=== PATIENT | male | born 1990 | race Caucasian/White ===

== ENCOUNTER 2021-03-08 14:19 | Outpatient (REF) | payer OTHER, SELFPAY ==
[2021-03-08 19:08] LABS: C Reactive Protein 0.16 mg/dL (< or = 0.50); Rheumatoid Factor < 15.0 IU/mL (<15.0)
[2021-03-08 19:32] LABS: Vitamin D 25-OH Total 24.6 ng/mL (>30)
[2021-03-08 19:44] LABS: Folate 18.6 ng/mL (> or = 4.0); Vitamin B12 485 pg/mL (200-900)
[2021-03-08 19:59] LABS: Erythrocyte Sedimentation Rate 2 MM/HR (0-15)
[2021-03-10 23:46] LABS: Anti Nuclear Antibody Screen NEGATIVE (NEGATIVE)
[2021-03-11 17:06] LABS: Lyme Abs Screen <0.90 index
[2021-03-13 11:52] LABS: A. Phagocytophilum Ab IgG <1:64 (<1:64); A. Phagocytophilum Ab IgM <1:20 (<1:20); E. Chaffeensis Ab IgG <1:64 (<1:64); E. Chaffeensis Ab IgM <1:20 (<1:20)
== END 2021-03-08 14:20 | disposition home or self-care (01) ==
LOC: HO.MANLDS 14:19
PROVIDERS: PCP Internal Medicine; Visit Provider Physician Assistant
DX: M25.50 Pain in unspecified joint (principal)
CPT/HCPCS: 36415; 82306; 82607; 82746; 85652; 86038; 86039; 86140; 86431; 86617; 86618; 86666

== ENCOUNTER 2022-06-17 11:24 | Outpatient (REF) | payer OTHER, SELFPAY ==
[2022-06-17 13:48] LABS: MANUAL DIFF FLAG NO
[2022-06-17 14:06] LABS: Basophils Absolute Auto 0.1 X10*3/uL (0.0-0.2); Eosinophils Absolute Auto 0.1 X10*3/uL (0.0-0.4); Eosinophils Percent Auto 2.5 % (0-4); Hematocrit 42.2 % (42.0-52.0); Hemoglobin 14.5 g/dl (14.0-18.0); Imm Gran Abs Auto 0.01 X10*3/uL (0.00-0.03); Imm Gran Pct Auto 0.2 % (0.0-0.4); Lymphocytes Absolute Auto 2.2 X10*3/uL (1.2-4.9); Lymphocytes Percent Auto 41.9 % (20-40); Mean Corpuscular HGB Conc 34.4 g/dl (31.0-36.0); Mean Corpuscular Hemoglobin 30.3 pg (27.0-33.0); Mean Corpuscular Volume 88.3 fL (80.0-98.0); Mean Platelet Volume 10.2 fL (9.4-12.4); Monocytes Absolute Auto 0.5 X10*3/uL (0.1-1.2); Monocytes Percent Auto 9.6 % (2-11); Neutrophils Absolute Auto 2.4 x10*3/uL (2.0-8.3); Neutrophils Percent Auto 44.8 % (45-73); Platelet Count 276 X10*3/uL (160-400); Red Blood Count 4.78 X10*6/uL (4.60-5.80); Red Cell Distribution Width 13.2 % (11.0-16.0); White Blood Count 5.2 X10*3/uL (4.8-10.8)
[2022-06-17 14:30] LABS: Alanine Aminotransferase 31 U/L (0-40); Albumin Level 4.6 g/dL (3.5-5.0); Alkaline Phosphatase 63 U/L (39-117); Anion Gap 14 (12-20); Aspartate Amino Transferase 25 U/L (5-37); Bilirubin Total 0.7 mg/dL (0.0-1.0); Blood Urea Nitrogen 10 mg/dL (9-16); Calcium 9.4 mg/dL (8.4-10.2); Carbon Dioxide 28 mmol/L (22-29); Chloride 104 mmol/L (96-108); Cholesterol 215 mg/dL; Estimated Glomerular Filt Rate > 60; Glucose Random 86 mg/dL (60-115); HDL Cholesterol 40 mg/dL; LDL Cholesterol Calculated 154 mg/dl; Potassium 4.5 mmol/L (3.3-5.1); Sodium 141 mmol/L (135-145); Total Protein 7.3 g/dL (6.5-8.0); Triglycerides 108 mg/dL
[2022-06-17 14:50] LABS: Vitamin D 25-OH Total 27.1 ng/mL (>30)
== END 2022-06-17 11:25 | disposition home or self-care (01) ==
LOC: HO.MANLDS 11:24
PROVIDERS: Visit Provider Internal Medicine
DX: Z00.00 Encounter for general adult medical examination without abnormal findings (principal)
CPT/HCPCS: 36415; 80053; 80061; 82306; 85025

== ENCOUNTER 2023-10-31 20:04 | Emergency (ER) | payer OTHER, SELFPAY ==
--- NOTE | ~2023-10-31 | XR_ITS ---
Examination: XR ankle LT min 3V, XR foot LT min 3V Indication: injury,pain Comparison: No pertinent prior studies are currently available for comparison. Technique: 2 views the ankle, 3 views the foot including a lateral view of the foot and ankle obtained. Findings: There is significant soft tissue swelling laterally about the ankle. I do not appreciate any underlying acute fracture or dislocation. Ankle mortise appears be intact. No fracture or dislocation seen within the visualized foot. No radiopaque foreign body or soft tissue gas. XR/XR foot LT min 3V Impression: Significant soft tissue swelling laterally about the ankle but no acute fracture or dislocation seen.
--- NOTE | ~2023-10-31 | XR_ITS ---
Examination: XR ankle LT min 3V, XR foot LT min 3V Indication: injury,pain Comparison: No pertinent prior studies are currently available for comparison. Technique: 2 views the ankle, 3 views the foot including a lateral view of the foot and ankle obtained. Findings: There is significant soft tissue swelling laterally about the ankle. I do not appreciate any underlying acute fracture or dislocation. Ankle mortise appears be intact. No fracture or dislocation seen within the visualized foot. No radiopaque foreign body or soft tissue gas. XR/XR ankle LT min 3V Impression: Significant soft tissue swelling laterally about the ankle but no acute fracture or dislocation seen.
[2023-10-31 20:09] VITALS: BP 137/94; PULSE 88; RESP 17; TEMP 36.4; O2SAT 98; BMI 28.3
--- NOTE | 2023-10-31 20:46 | ED.GENADULT ---
HPI - General Adult General Chief complaint: Extremity Injury, Lower Stated complaint: foot pain Time Seen by Provider: 10/31/23 20:42 Source: patient Mode of arrival: ambulatory Limitations: no limitations History of Present Illness HPI narrative: Patient is a 33 year old assigned male at with no reported medical history presenting to the emergency department today with bruising to his left foot and swelling to his left ankle. 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 Patient states that he doesn't have any pain but noticed bruising and thought he should have it checked out. Patient denies any numbness, tingling, dizziness, lightheadedness, abdominal pain, nausea, vomiting, fever, chills, blurry vision, double vision, loss of vision, chest pain, difficulty breathing, shortness of breath, back pain, night sweats, pain with urination, increased urinary frequency, increased urinary urgency, blood in his urine or stool, syncope or a near syncopal episode, bowel incontinence, bladder incontinence, bowel retention, bladder retention, or any other complaints at this time. Onset (ago): day(s) (2) Location: left and lower extremity Radiation: non-radiation Severity: mild Severity scale (1-10): 3 Relieving factors: none Exacerbating factors: none Associated symptoms: denies other symptoms Treatments prior to arrival: none Related Data Allergies Allergy/AdvReac Type Severity Reaction Status Date / Time cefadroxil [From Duricef] Allergy Hives Verified 10/31/23 20:16 doxycycline Allergy Vomiting Verified 10/31/23 20:16 shellfish derived Allergy Vomiting Verified 10/31/23 20:16 Review of Systems Constitutional: Constitutional: Reports no additional constitutional complaints, Denies chills, Denies fever(s) and Denies night sweats Eyes: Eyes: Reports no additional eye complaints, Denies blurry vision, Denies change in vision, Denies diplopia, Denies eye discharge, Denies loss of vision and Denies eye pain ENT: Denies dizziness Cardiovascular: Cardiovascular: Reports no additional cardiovascular complaints, Denies chest pain, Denies lightheadedness, Denies Loss of Consciousness and Denies dyspnea Respiratory: Respiratory: Reports no additional respiratory complaints and Denies dyspnea Gastrointestinal: Gastrointestinal: Reports no additional gastrointestinal complaints, Denies abdominal pain, Denies melena, Denies hematochezia, Denies change in bowel habits and Denies change in stool character Genitourinary: Genitourinary: Reports no additional male genitourinary complaints, Denies hematuria, Denies oliguria, Denies difficulty urinating, Denies dysuria, Denies urinary frequency, Denies urinary hesitancy, Denies urinary incontinence and Denies urinary urgency Musculoskeletal: Musculoskeletal: Reports no additional musculoskeletal complaints, Denies numbness and Denies tingling Comments: left ankle and foot swelling / bruising Neurologic: Denies dizziness, Denies loss of vision, Denies numbness and Denies tingling Psychiatric: Psychiatric: Reports no additional psychiatric complaints Endocrine: Endocrine: Reports no additional endocrine complaints Hematologic/Lymphatic: Hematologic/Lymphatic: Reports no additional hematologic/lymphatic complaints Allergic/Immunologic: Allergic/Immunologic: Reports no additional allergic/immunologic complaints PMFSH Past Medical History Attestation statement: The following information was validated with the patient. Source: old records reviewed and nursing notes reviewed Social History Social History Advance Directives: No Advance Directives Information Provided: No Physical Exam ED Vital Signs: Vital Signs - 24 hr 10/31/23 20:09 Temperature 97.5 F Pulse Rate 88 Respiratory Rate 17 Blood Pressure 137/94 H Pulse Oximetry 98 Oxygen Delivery Method Room Air BMI result Body Mass Index 28.3 Const General: cooperative, no acute distress, alert and awake Nutritional Appearance: well nourished Orientation/consciousness: patient oriented x3 Limitations: no limitations HENMT Head: Yes normal to inspection and Yes atraumatic Ears: hearing grossly normal bilaterally and external ears normal General nose exam: Normal external nose present, no nasal discharge noted and no epistaxis Face and sinus: Yes normal facial exam, No abrasion and No laceration Mouth: Normal oral and palatal mucosa present, no drooling and no muffled voice Eyes General: appearance normal, both eyes and all related structures Periorbital: periorbital findings normal Eyelids: Yes eyelids normal Conjunctivae: conjunctivae normal Pupils: Equal, round and reactive pupils present EOM: EOMs intact bilaterally Neck Neck: Yes normal visual inspection, Yes full ROM and Yes no lymphadenopathy Chest Chest palpation & inspection: normal inspection of the chest Resp Effort & Inspection: normal respiratory effort and able to speak in complete sentences GI Inspection: Yes normal to inspection Neuro General: patient oriented x3 and moves all extremities Cranial nerves: Yes Equal, round and reactive pupils present Cognition (Neuro): normal cognition Motor exam (neuro): 5/5 motor strength present throughout Sensory Exam: Normal double simultaneous stimulation for sensation Coordination: [id number] test normal Extrem Other: minimal swelling present to the left dorsal foot and left ankle, bruising in various stages of healing to the dorsal left foot and ankle General: Yes full ROM and Yes capillary refill normal Psych Appearance: grossly normal Mental Status: mental status grossly normal Affect: normal affect Attitude: cooperative Thought process: Normal thought process present Thought content: Normal thought content present Insight: Good insight present (Psych) Medical Decision Making Medical Decision Making MDM Narrative: Patient is a 33 year old assigned male at with no reported medical history presenting to the emergency department today with left ankle and foot swelling. Patient's physical exam was as noted in the physical exam portion of this note. Patient's left ankle and foot x-rays showed no acute process. I explained my physical exam findings as well as all test results to the patient. I answered all questions asked by the patient. I stressed the importance of the patient taking his medication as prescribed. I stressed the importance of the patient following up with his primary care provider. I stressed the importance of the patient returning to the emergency department immediately if his symptoms were to worsen or if he were to develop any dizziness, shortness of breath, difficulty breathing, chest pain, blurry vision, loss of vision, nausea, vomiting, abdominal pain, fever, chills, back pain, or any other complaints. Patient verbalized agreement and understanding with this treatment plan and discharge. Differential Diagnosis Differential Diagnoses: The differential diagnosis associated with the presentation includes Ankle sprain Ankle strain Foot sprain Foot strain Bruising to the ankle and foot Foot swelling Ankle swelling Admission/Observation Consideration of admission/observation: Escalation of care including admission/observation considered Patient would have been admitted to the hospital had his work up had any findings where hospital admission was appropriate and his clinical presentation warranted hospital admission. Independent Interpretation I performed an independent interpretation of an: Plain X-Ray Interpretation: My interpretation is in agreement with the radiologist's impression of these imaging studies. Examination: XR ankle LT min 3V, XR foot LT min 3V Indication: injury,pain Comparison: No pertinent prior studies are currently available for comparison. Technique: 2 views the ankle, 3 views the foot including a lateral view of the foot and ankle obtained. Findings: There is significant soft tissue swelling laterally about the ankle. I do not appreciate any underlying acute fracture or dislocation. Ankle mortise appears be intact. No fracture or dislocation seen within the visualized foot. No radiopaque foreign body or soft tissue gas. XR/XR foot LT min 3V Impression: Significant soft tissue swelling laterally about the ankle but no acute fracture or dislocation seen. Dictated By: Ihsan Magana MD Signed By: Electronically signed by Ihsan Magana MD 10/31/232052 Radiology Impression Discussion of test interpretation with radiology: I have reviewed the radiologist's reading. Discharge Plan Discharge Clinical Impression: Ankle sprain and strain Patient Disposition: Home, Self-Care Instructions: Ankle Sprain (ED) Additional Instructions: Follow up with your primary care provider. Return to the emergency department immediately if your symptoms worsen or if you develop any dizziness, shortness of breath, difficulty breathing, chest pain, blurry vision, loss of vision, nausea, vomiting, abdominal pain, fever, chills, back pain, or any other complaints. Referrals: Isaías Alex MD [Primary Care Provider] - Interventions: ED Discharge Assessment Last Done: 10/31/23 21:49 Discharge Date/Time: 10/31/23 21:50 Print Language: Turkmen
--- OUTSIDE RECORDS SUMMARY | 2023-10-31 20:58 | XMS_ITS | Continuity of Care Document ---
Author Name Unknown Organization [facility] Address [address] [address]- Care Team Providers Care Face Man Name Role Phone Isaías Alex DO Primary Care Physician [phone] [place] [facility] [place]/22 [facility] [address] [address]- Attending Physician: Alanis Salas MD Admitting Physician: Alanis Salas MD Referring Physician: Isaías Alex DO Allergies, Adverse Reactions, Alerts Substance Reaction Severity Status doxycycline Cefadroxil Active Medications amitriptyline 25 mg oral tablet Refills 0, Maintenance, 10/28/22 13:25:00 EST, Partial fill upon patient request if the prescription is for a schedule II opioid drug. Start Date: 10/28/22 Status: Ordered aspirin 81 mg oral delayed release tablet 81 mg, 1, tablet, By Mouth, Daily, Refills 0, Maintenance, 10/28/22 13:29:00 EST, Partial fill uponpatient request if the prescription is for a schedule II opioid drug. Start Date: 10/28/22 Status: Ordered Flexeril 10 mg oral tablet 5 mg and 10 mg, By Mouth, PRN, Refills 0, Maintenance, 10/28/22 13:30:00 EST, Partial fill upon patient request if the prescription is for a schedule II opioid drug. Start Date: 10/28/22 Status: Ordered methocarbamol 750 mg oral tablet 0 Refills, Maintenance, 10/28/22 13:27:00 EST, Partial fill upon patient request if the prescription is for a schedule II opioid drug. Start Date: 10/28/22 Status: Ordered Metoprolol Succinate ER 50 mg oral tablet, extended release 2 times a day, 0 Refills, Maintenance, 10/28/22 13:26:00 EST, Partial fill upon patient request if the prescription is for a schedule II opioid drug. Start Date: 10/28/22 Status: Ordered Multivitamin Daily, 0 Refills, Maintenance, 10/28/22 13:29:00 EST, Partial fill upon patient request if the prescription is for a schedule II opioid drug. Start Date: 10/28/22 Status: Ordered Omeprazole = 40 mg, By Mouth, Daily, 0 Refills, Maintenance, 10/28/22 13:29:00 EST, Partial fill upon patient request if the prescription is for a schedule II opioid drug. Start Date: 10/28/22 Status: Ordered Tramadol = 50 mg, By Mouth, PRN, 0 Refills, Maintenance, 10/28/22 13:30:00 EST, Partial fill upon patient request if the prescription is for a schedule II opioid drug. Start Date: 10/28/22 Status: Ordered Patient Care team information Care Team Personnel Name: Isaías Alex DO Position: Reference Physician Member Role: PCP Address: Address: [address] [place] [address] [place] [address]- Care Team Related Persons Name: ZONIA WATSON Address: [facility] [address] [place] [id number]
--- OUTSIDE RECORDS SUMMARY | 2023-10-31 20:58 | XMS_ITS | Continuity of Care Document ---
Author Name Unknown Organization [facility] Address [address] [address]- Care Team Providers Care Ssis Developer Name Role Phone Isaías Alex DO Nataliia Primary Care Physician [phone] Encounter [facility] [place] Date(s): 10/28/22 - 12/31/22 [facility] [address] [address]- Attending Physician: Danny Rojas MD Admitting Physician: Danny Rojas MD Referring Physician: Danny Rojas MD Allergies, Adverse Reactions, Alerts Substance Reaction Severity [...] Reference Physician Member Role: PCP Address: Address: [address] [place] [address] [place] [address]- Care Team Related Persons Name: ZONIA WATSON Address: [facility] [address] [place] [id number]
--- OUTSIDE RECORDS SUMMARY | 2023-10-31 20:58 | XMS_ITS | Continuity of Care Document ---
Author Name Unknown Organization [facility] Address [address] [address]- Care Team Providers Care Brazer Controlled Atmospheric Furnace Name Role Phone Isaías Alex DO Nataliia Primary Care Physician [place] [facility] [place]s): 10/02/22 - 11/01/22 [facility] [address] [address]- [place] Allergies, Adverse Reactions, Alerts No Known Medication Allergies Medications amitriptyline 25 mg oral tablet Refills [...] ER 50 mg oral tablet, extended release 0 Refills, Maintenance, 10/28/22 13:26:00 EST, Partial [...] Reference Physician Member Role: PCP Address: Address: [address] [place] [address] [place] [address]- Care Team Related Persons Name: ZONIA WATSON Address: [address] [address]
--- OUTSIDE RECORDS SUMMARY | 2023-10-31 20:58 | XMS_ITS | Continuity of Care Document ---
Author Name Unknown Organization [facility] Address [address] [address]- Care Team Providers Care Automobile Leasing Supervisor Name Role Phone Isaías Alex DO Nataliia Primary Care Physician [place] [facility] [place] 12/01/22 - 12/31/22 [facility] [address] [address]- Attending Physician: Johnny Santos Admitting Physician: AdmJohnny morillo Referring Physician: Admtr, Ar8 Allergies, Adverse Reactions, Alerts Substance Reaction Severity [...] Reference Physician Member Role: PCP Address: Address: [address] [place] [address] [place] [address]- Care Team Related Persons Name: ZONIA WATSON Address: [facility] [address] [place] [id number]
--- OUTSIDE RECORDS SUMMARY | 2023-10-31 20:58 | XMS_ITS | Continuity of Care Document ---
Author Name Unknown Organization [facility] Address [address] [address]- Care Team Providers Care Hospitalist Physician Name Role Phone Isaías Alex DO Primary Care Physician Encounter [facility] [place] Date(s): 11/07/22 - 01/08/23 [facility] [address] [address]- Attending Physician: Danny Rojas MD Admitting Physician: Danny Rojas MD Referring Physician: Isaías Alex DO Allergies, [...] Reference Physician Member Role: PCP Address: Address: [address] [place] [address] [place] [address]- Care Team Related Persons Name: ZONIA WATSON Address: [facility] [address] [place] [address]
--- OUTSIDE RECORDS SUMMARY | 2023-10-31 20:58 | XMS_ITS | Continuity of Care Document ---
Author Name Unknown Organization [facility] Address [address] [address]- Care Team Providers Care Rotor Casting Machine Operator Name Role Phone Isaías Alex DO Primary Care Physician [phone] Encounter [facility] [place] Date(s): 10/28/22 - 11/04/22 [facility] [address] [address]- Attending Physician: Danny Sanabria MD Admitting Physician: Danny Sanabria MD Referring Physician: Isaías Alex DO Allergies, Adverse Reactions, Alerts No Known Medication [...] opioid drug. Start Date: 10/28/22 Status: Ordered Vital Signs Most recent to oldest [Reference Range]: 1 Weight 91 kg (10/28/22 1:24 PM) Oxygen Saturation [94-100 %] 97 % (10/28/22 1:24 PM) Pulse Rate [55-90 bpm] 68 bpm (10/28/22 1:24 PM) Blood Pressure [90-138/55-84 mm Hg] 136/ 71mm Hg (10/28/22 1:24 PM) Mode of Delivery (Oxygen) Room air (10/28/22 1:24 PM) Blood pressure sites Arm, left (10/28/22 1:24 PM) Weight Obtained Via Standing scale (10/28/22 1:24 PM) EKG study * Event Display: ECG 12-Lead Authored Date: Please click on pdf link to open report * Event Display: ECG 12-Lead Authored Date: Ventricular Rate: 68 BPM Atrial Rate: 68 BPM P-R Interval: 132 ms QRS Duration: 84 ms Q-T Interval: 378 ms QTC Calculation(Bazett): 401 ms P Argos: 14 degrees R Argos: 28 degrees T Argos: 14 degrees Normal sinus rhythm Normal ECG No previous ECGs available Confirmed by DANNY SANABRIA ([id number]) on 10/28/2022 4:41:27 PM Wayne: DANNY SANABRIA Cardiology Outpatient Note * [facility]UZ[facility]: PERFORM, MODIFY, MODIFY, MODIFY, MODIFY Event Display: Cardiology Note Office Authored Date: [id number] Patient: ??RISHI WATSON ? Age:??32 Years?Sex:??Male?:??1990?? Indication for Consult ?? [facility] -??Cardiology Clinic Note ?? Primary Care Provider: Isaías Alex, DO ?? Reason for referral: Chest Pain ?? History of Present Illness/Interval History The patient is a 32-year-old gentleman with a past medical history of AZ in his 20s, asthma, gastroesophageal reflux disease who presents to the cardiology clinic for further evaluation. ?? Patient reports that he is currently active in the [employer].?? He reports that approximately 10 years ago he was in [place] and reportedly developed left- sided chest discomfort radiating down hisleft arm.?? He reports that he discussed this with the physicians at his base who felt he was too young to have a heart attack.?? He reports that his chest discomfort persisted until he was seen by [facility] later that day.?? He reports that his cardiac enzymes were reportedly elevated.?? He reports that he was seen by a weapons system instrument mechanic and was told that he had a heart attack.?? He denies any history of cardiac catheterization, coronary interventions, or bypass surgery.?? Reports that he w as started on aspirin and metoprolol which she has been maintained on for the past decade.?? He reports that this was done in [place]. ?? Patient reports that he has been in his usual state of health until the day before when he was sitting down on his couch and developed severe shortness of breath and ran into the other room.?? He reports that he developed left-sided chest discomfort and was seen at [facility].?? His lab work-up was unremarkable and did not have elevated troponins or ischemic EKG changes.?? His symptoms were thought to be secondary to laryngospasm and was discharged from the emergency department with outpatient follow-up with cardiology.?? He reports that since that time he has developed significant shortness of breath on exertion primarily while climbing up a flight of stairs o r walking significant distances.?? Denies orthopnea, PND, lower extremity swelling, dizziness, or syncopal episodes. Review of Systems Constitutional, Eye, Skin, Head/Neck, ENMT, Respiratory, Cardiovascular, Gastrointestinal, Endocrine, Musculoskeletal, Neurologic, Psych reviewed and negative except as noted in HPI. Physical Exam Vitals & Measurements AZ:??68?? BP:??136/71?? SpO2:??97%?? WT:??91??kg?? Weight lb/oz: 200 lb 10 oz General:??No apparent distress. Well nourished, appears stated age. Able to participate in a conversation. HEENT:??NCAT, EOMI, Sclera are anicteric. Moist oral mucosa. Neck:??Supple, No lymphadenopathy. No JVD. Cardiac:??Regular rate and rhythm, + S1, S2. No appreciable murmurs. PMI ND. Respiratory:??Clear to auscultation bilaterally without wheezes, rales or rhonchi. Abdomen:??Soft, nontender, non-distended, no abnormal BS, no HSM. Rectal exam deferred. Extremities:??No lower extremity edema noted.?? Neurology:??No focal neurological deficits.?? Psych:??Appropriate affect. Assessment/Plan The patient is a 32-year-old gentleman with a past medical history of AZ in his 20s, asthma, gastroesophageal reflux disease who presents to the cardiology clinic for further evaluation. ?? Problem list: 1.?? Dyspnea on exertion 2.?? Chronic left-sided chest pain 3.?? Reported history of AZ in his 20s 4.?? Family history of premature coronary artery disease 5.?? Gastroesophageal reflux disease 6.?? Asthma ?? Assessment: Patient reports a history of left-sided chest pain approximately a decade ago requiring evaluation in [place].?? He was reportedly told that he had a heart attack by the emergency department and acardiologist.?? He did not require cardiac catheterization or coronary intervention for the patient.?? He reports that he has since been maintained on aspirin and metoprolol.?? He reports that he wasin his usual state of health until the day before when he developed severe shortness of breath prompting him to be seen at [facility].?? He had unremarkable lab work-up.??Reports since that time he has been having significant shortness of breath with exertion with associated chronic left-sided chest pain.?? At this time, given unclear history of prior heart attack we will obtain a transthoracic echocardiogram for further evaluation and will further work-up for coronary artery disease with coronary CTA. ?? Recommendations: - Obtain coronary CTA to evaluate for underlying coronary artery disease - Obtain transthoracic echocardiogram to evaluate cardiac function and for structural heart disease - Obtain lipid panel, A1c, basic metabolic panel - Continue medications as prescribed - Follow-up after above testing has been completed ?? Thank you for allowing us to participate in the care of your patient.?? Please feel free to reach out if you have any questions. ?? Patient discussed with attending weapons system instrument mechanic, Dr. Sanabria. ?? Carroll Calloway MD Afternoon Babysitter, PGY-6 Pager: [phone] Allergies No Known Medication Allergies Home Medications amitriptyline 25 mg oral tablet aspirin 81 mg oral delayed release tablet, 81 mg= 1 tablet, By Mouth, Daily Flexeril 10 mg oral tablet, 5 mg and 10 mg, By Mouth, PRN methocarbamol 750 mg oral tablet Metoprolol Succinate ER 50 mg oral tablet, extended release Multivitamin, Daily Omeprazole, 40 mg, By Mouth, Daily Tramadol, 50 mg, By Mouth, PRN Problem List/Past Medical History Ongoing No qualifying data Historical No qualifying data Procedure/Surgical History Hernia and hydrocele repair when he was 2 months old. Appendectomy in 2018. Social History Patient lives in [place], [place]. 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 Never smoker. Denies illicit drug use. Drinks 1-2 beers per week. Family History Uncle: AZ in his 50's. Grandmother (maternal): CAD with PCI's in the past. Grandmother (paternal): Valve replacement Grandfather (paternal): Dual valve replacement and quadruple bypass * Danny Sanabria MD: PERFORM Event Display: Cardiology Note Office Authored Date: [id number] Attending Attestation:??I have seen and evaluated this patient. ??I have discussed the case and itsmanagement with the fellow and agree with the findings and plan as documented in the fellow???s note. Patient Care team information Care Team Personnel Name: Isaías Alex DO Position: Reference Physician Member Role: PCP Address: Address: [address] [place] [address] [place] [address]- Care Team Related Persons Name: ZONIA WATSON Address: home [address] [place] [address]
--- OUTSIDE RECORDS SUMMARY | 2023-10-31 20:58 | XMS_ITS | Continuity of Care Document ---
Author Name Unknown Organization [facility] Address [address] [address]- Care Team Providers Care Health It Specialist Name Role Phone Isaías Alex DO Nataliia Primary Care Physician [phone] Encounter [facility] Date(s): 12/09/22 - 01/08/23 [facility] [address] [address]- Attending Physician: Johnny Santos Admitting Physician: AdmJohnny [...] Reference Physician Member Role: PCP Address: Address: [address] [place] [address] [place] [address]- Care Team Related Persons Name: ZONIA WATSON Address: [facility] [address] [place] [id number]
== END 2023-10-31 21:50 | disposition home or self-care (01) ==
PROVIDERS: Emergency Provider Emergency Medicine Emergency Medical Services; PCP Internal Medicine
DX: S93.492A Sprain of other ligament of left ankle, initial encounter (principal); S96.812A Strain of other specified muscles and tendons at ankle and foot level, left foot, initial encounter; X50.1XXA Overexertion from prolonged static or awkward postures, initial encounter; Y93.89 Activity, other specified; Y92.59 Other trade areas as the place of occurrence of the external cause; Y99.0 Civilian activity done for income or pay
CPT/HCPCS: 73610; 73630; 99282; 99283

== ENCOUNTER 2024-10-04 13:12 | Outpatient (REF) | payer OTHER, SELFPAY ==
--- NOTE | ~2024-10-04 | US_ITS ---
CLINICAL HISTORY: SWELLING, LUMP, LEFT SIDE US of the neck, soft tissues Comparison: None Findings: There are 2 indeterminate lymph nodes measuring 2.0 x 1.1 x 0.4 cm and 1.7 x 0.9 x 0.5 cm. There are no cystic or solid masses in the areas scanned. Impression: 1. Indeterminate cervical adenopathy. Clinical follow-up recommended This document has been electronically signed by: Santiago Glass MD on 10/07/2024 08:44:11
== END 2024-10-04 13:13 | disposition home or self-care (01) ==
LOC: HO.US 13:12
PROVIDERS: PCP Internal Medicine; Visit Provider Physician Assistant
DX: R22.1 Localized swelling, mass and lump, neck (principal)
CPT/HCPCS: 76536

== ENCOUNTER → 2024-10-04 13:15 | Outpatient (BNV) | payer OTHER, SELFPAY | PROVIDERS: PCP Internal Medicine; Visit Provider Specialist | DX: R22.1 Localized swelling, mass and lump, neck (principal) | CPT/HCPCS: 76536 ==

== ENCOUNTER 2024-12-07 09:47 | Outpatient (REF) | payer OTHER, SELFPAY ==
--- NOTE | ~2024-12-07 | CT_ITS ---
EXAMINATION: CT SOFT TISSUE NECK WITH CONTRAST CLINICAL INFORMATION: Lymphadenopathy. Rule out abnormal lymph nodes. COMPARISON: Soft tissue ultrasound neck 10/04/2024. No prior CT. TECHNIQUE: Following the intravenous administration of 100 mL of Omnipaque 350 intravenous contrast, helical imaging was performed in the axial plane with generation of coronal and sagittal reformatted images. This CT examination was performed using dose optimization techniques as appropriate, variously including the following: *Automated exposure control *Adjustment of mA and/or kV according to patient size (this includes techniques or standardized protocols for targeted exams where dose is matched to indication/reason for exam; i.e. extremities or head) *Use of iterative reconstruction technique FINDINGS: Lymph Nodes: -Normal. None enlarged by size criteria or demonstrating abnormal morphology. Carotid Sheath Structures: -Normal. Salivary Glands: -Normal. Tongue Base/Floor of Mouth: -Normal. Mucosal Space: -Mild hypertrophy of the tonsillar pillar soft tissues, consistent with reactive etiology. -Normal epiglottis and aryepiglottic folds. -Otherwise normal mucosal space. Visceral Space: -Thyroid gland: Normal. -Larynx normal. -Subglottic trachea normal. -Superior esophagus normal. Retropharangeal Space: -Normal. Parapharyngeal Fat Planes: -Normal and undisturbed. Husker Operator Spaces: -Normal. Anterior Cervical Space: -BB marker placed over the left anterior sternocleidomastoid muscle. No underlying abnormality. -Otherwise normal. Imaged Intracranial Contents: -No mass effect, edema, or abnormal enhancement. Cortical and dural venous sinuses are patent. The skull base is normal. Globes and Orbits: -Normal. Paranasal Sinuses/Mastoids/Tympanic Spaces: -Normally aerated bilaterally. -There is left nasal septal deviation with spurring. Lung Apices and Superior Mediastinal Structures: -Imaged lung apices are clear and superior mediastinal structures are normal. Bony Structures: -No suspicious bone lesions. No fractures. -Normal TM joints. CT/CT soft tissue neck w IV con IMPRESSION: 1. Essentially normal CT examination of the neck. 2. No abnormal lymph nodes by size criteria or morphology. Electronically signed by: Murray Mirza MD 12/07/2024 12:27 PM EDT
[2024-12-07] MEDS: iohexoL 350 MG/ML 100 ML INFUS..BTL IV (10:52)
--- OUTSIDE RECORDS SUMMARY | 2024-12-07 10:53 | XMS_ITS | Data Portability ---
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 REVIEW OF PRIOR EXTERNAL NOTES/RESULTS, ORDERING OF TEST(S) CATEGORY 2. ASSESSMENT REQUIRING INDEPENDENT HISTORIAN(S) INCLUDE WHO THE HISTORIAN IS AND RELATION TO PT AND WHY PT IS UNABLE TO GIVE COMPLETE HISTORY ELEMENT 3: RISK (LOW) RISK OF COMPLICATIONS AND/OR MORBIDITY OR MORTALITY OF PATIENT MANAGEMENT PROVIDER MUST THOROUGHLY DOCUMENT ALL OF THE ELEMENTS COVERED Not available 06/24/2024 09:54:59 09/23/2024 09/23/2024 Patient agreed and verbally consents to this audio and video Telehealth appt via a secure platform [email or web address] Not available 09/23/2024 12:10:04 Plan of Treatment Reminders Order Date Submit Date Provider Last Modified By Organization Details Last Modified Time Details Appointments None recorded. Lab CMP, serum or plasma 2021 [facility], [address] [place] [address], [address], 12:02:18 lipid panel, blood 2021 022 [facility], [address] [place] [address], [address], 2 11:15:20 vitamin D, 25-hydroxy , total, serum 2021 [facility], [address] [place] [address], [address], 11:15:20 CBC w/ diff 2021 [facility], [address] [place] [address], [address], 2 13:12:[address] referral 2021 [facility], [address], [address], 3 10:22:37 Procedures None recorded. Surgeries None recorded. Imaging US, neck, soft tissue 2023 [facility], [address] [place] [address], [place], [address], 5 09:37:36 home sleep study 2022 023 [email or web address] Not available 3 11:09:12 Medication Orders omeprazole 40 mg capsule,de layed release 2021 [facility] #[id number], [address], [place], [id number], 14:55:56 famotidine 20 mg tablet 2021 [facility] [employer] #[id number], [address], [place], [id number], 14:55:59 Patient TargetsNo targets recorded. 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 [email or web address] [facility] (Medical Records) [address] [place], [address], 11/01/2023 08:24:43 10/31/19 24 10/31/2023 XR, ankle No observ ation record ed. [email or web address] [facility] (Medical Records) [address] [place], [address], 11/01/2023 08:25:06 10/07/19 25 10/04/2024 US, neck, soft tissu e No observ ation record ed. [email or web address] [facility] (Medical Records) [address] [place], [address], 10/07/2024 11:22:46 Result Notes None recorded. Problems Name Problem SNOMED Code Status Onset Date Resolution Date Notes Provider Name and Address Organization Details Recorded Time Palpitati ons 46821259 Active 2018 Not Available [facility] 09:41:38 Chronic neck pain 92420721506 07 Active 2018 Not Available [facility] 09:41:38 Paresthes ia of finger 404850112 Active 2018 Not Available [facility] 09:41:38 Gastroeso phageal reflux disease without esophagit is 826425645 Active 2018 Not Available [facility] 09:41:38 Sinus tachycard ia 98357347 Active 2018 seen on holter Not Available [facility] 09:41:38 COVID-19 615369487 Active 2021 Isaías Alex DO [address] [place] [address], [address], [facility] 2 12:50:01 Laryngoph aryngeal reflux 604067868 Active 2021 CARMENZA LISA [address] [place] [address], [address], [facility] 2 14:53:24 Atypical chest pain 436523274 Active 2021 CARMENZA LISA [address] [place] [address], [address], [facility] 2 15:00:00 Influenza 4402343 Active 2022 CARMENZA LISA [address] [place] [address], [address], [facility] 3 07:11:34 Migraine 91682196 Active 2022 Isaías Alex DO [address] [place] [address], [address], [facility] 3 15:40:06 Otitis media 51202544 Active 2022 CARMENZA LISA [address] [place] [address], [address], [facility] 3 12:43:33 Fatigue 73700858 Active 2022 Isaías Alex DO [address] [place] [address], [address], [facility] 3 10:21:11 Streptoco ccal sore throat 05375258 Active 2022 CARMENZA LISA [address] [place] [address], [address], [facility] 3 12:25:02 Cough 98569452 Active 2023 Isaías Alex DO [address] [place] [address], [address], [facility] 4 15:39:07 Acute bronchiti s 03775449 Active 2023 CARMENZA LISA [address] [place], [address], [facility] 4 14:53:57 Mass of neck 205271651 Active 2023 CARMENZA LISA [address] [place], [address], [facility] 4 12:08:36 Feeling of lump in throat 895530485 Active 2023 CARMENZA LISA [address] [place], [address], [facility] 4 12:15:37 Lymphaden opathy 92094045 Active 2024 CARMENZA LISA [address] [place] [address], [address], [facility] 5 11:24:00 Acute sinusitis 20439909 Active 2024 Isaías Alex, [address] [place] [address], [address], [facility] 5 14:36:20 Problem Notes None recorded. Procedures Surgical History Date Name Laterality Status Provider Name and Address Organization Details Recorded Time Appendectomy completed December Momo cochran [address], [address], [facility] 08/03/2019 14:36:07 laser assisted in situ keratomileusis completed December RONNELL [address], [address], [facility] 08/03/2019 14:36:20 hernia repair completed December Naresh fields [address], [address], [facility] 08/03/2019 14:58:37 excision of hydrocele completed Tess RONNELL [address], [address], [facility] 08/03/2019 14:58:46 Imaging Results Imaging Date Name Status LastModified by Organiz ation Details LastModified Time 10/31/2023 XR, ankle completed [email or web address] [facility] (Medical Records) [address] [place], [address], 11/01/2023 08:24:43 10/31/2023 XR, ankle completed [email or web address] [facility] (Medical Records) [address] [place], [address], 11/01/2023 08:25:06 10/04/2024 US, neck, soft tissue completed [email or web address] [facility] (Medical Records) [address] [place], [address], 10/07/2024 11:22:46 Procedure Notes None recorded. Medical Equipment None Reported. Allergies Allergen ID Allergen Name Allergen Category Reaction Reaction Severity Criticality Documentation Date Start Date Code Code System Note Provider Name and Address Organization Details Recorded Time 3576 Duricef medicatio n hives Not available Not available 08/03/2019 83743 6 RxNorm Lora [facility] 9 14:27:18 3577 doxycycli ne Not available vomiting Not available Not available 08/03/2019 3640 RxNorm Lora Wren [facility] 9 14:27:34 3578 shellfish derived food,medi cation nausea Not available Not available 08/03/2019 26113 UNK Lora Wren [facility] 9 14:27:48 Medications Name Sig Start Date Stop Date Status Note LastModified by Organization Details LastModified Time amoxicillin 500 mg capsule TAKE 1 CAPSULE BY MOUTH 3 TIMES A DAY FOR 10 DAYS. TAKE WITH FOOD, YOGURT, PROBIOTIC S. FINISH ALL. active Not Available Not Available No t Available methocarbam ol 500 mg tablet Take 2 tablets every day by oral route as needed. 03/27 completed Not Available Not Available Not Available prednisone 10 mg tablet TAKE 5 TABS X3 DAYS,THEN 4 TABS X3 DAYS, THEN 3 TABS X3 DAYS, THEN 2 TABS X3DAYS, THEN 1 TAB X3 DAYS active Not Available Not Available No t Available azithromyci n 250 mg tablet TAKE 2 TABLETS BY MOUTH TODAY, THEN TAKE 1 TABLET DAILY FOR 4 DAYS DIRECTED active Not Available Not Available No t Available metoprolol succinate ER 50 mg tablet,exte nded release 24 hr TAKE 1 TABLET BY MOUTH TWICE DAILY active Not Available Not Available No t Available Claritin 10 mg tablet Take 1 tablet every day by oral route. 05/03 completed Not Available Not Available Not Available sumatriptan 50 mg tablet active Not Available Not Available Not Available ciprofloxac in 500 mg tablet TAKE 1 TABLET BY MOUTH EVERY 12 HOURS FOR 14 DAYS 12/12 completed Not Available Not Available Not Available omeprazole 40 mg capsule,del ayed release TAKE 1 CAPSULE BY MOUTH EVERY DAY active Not Available Not Available No t Available tramadol 50 mg tablet Take 1 tablet every 6 hours by oral route as needed. 04/29 completed Not Available Not Available Not Available famotidine 20 mg tablet TAKE 1 TABLET BY MOUTH TWICE DAILY NEEDED 2021 active Not Available Not Available Not Avai lable amitriptyli ne 25 mg tablet TAKE 1 TABLET BY MOUTH EVERY DAY 2022 active Not Available Not Available Not Avai lable methocarbam ol 750 mg tablet Take 1 tablet 3 times a day by oral route as needed for 10 days. active PRN Not Available Not Available No t Available erythromyci n 5 mg/gram (0.5 %) eye ointment APPLY 1 CM RIBBON INTO THE LOWER CONJUNCTI MONICA SAC(S) IN THE AFFECTED EYE(S) BY OPHTHALMI C ROUTE 3 TIMES PER DAY 12/06 completed Not Available Not Available Not Available oseltamivir 75 mg capsule TAKE 1 CAPSULE BY MOUTH TWICE A DAY FOR 5 DAYS active Not Available Not Available No t Available neomycin-po lymyxin-dex ameth 3.5 mg/mL-10,00 0 unit/mL-0.1 % eye drops INSTILL 1 DROP INTO BOTH EYES 4 TIMES A DAY active Not Available Not Available No t Available gabapentin 300 mg capsule Take 1 capsule twice a day by oral route. 04/29 completed Not Available Not Available Not Available omeprazole 20 mg capsule,del ayed release TAKE 1 CAPSULE BY MOUTH EVERY DAY 08/26 completed Not Available Not Available Not Available metoprolol succinate ER 25 mg tablet,exte nded release 24 hr Take 1 tablet every day by oral route for 90 days. 05/21 completed Not Available Not Available Not Available methylpredn isolone 4 mg tablets in a dose pack FOLLOW PACKAGE DIRECTION S 06/17 completed Not Available Not Available Not Available ondansetron 4 mg disintegrat ing tablet TAKE 1 TABLET BY MOUTH EVERY 8 HOURS NEEDED FOR NAUSEA active Not Available Not Available No t Available fluticasone propionate 50 mcg/actuati on nasal spray,suspe nsion [place] 1 spray every day by intranasa l route for 30 days. 06/17 completed PRN Not Available Not Available Not Available amoxicillin 875 mg-potassiu m clavulanate 125 mg tablet TAKE 1 TABLET BY MOUTH EVERY 12 HOURS FOR 10 DAYS active Not Available Not Available No t Available metoprolol tartrate 25 mg tablet TAKE 1 TABLET (25 MG) BY ORAL ROUTE 2 TIMES PER DAY 08/03 completed Not Available Not Available Not Available loratadine 10 mg capsule Take 1 capsule every day by oral route for 90 days. active Not Available Not Available No t Available Flucelvax Quad 6571-9163 (PF) 60 mcg (15 mcg x 4)/0.5 mL IM syringe 05/21 completed Not Available Not Available Not Available Paxlovid 300 mg (150 mg x 2)-100 mg tablets in a dose pack TAKE 3 TABLETS BY MOUTH TWICE A DAY FOR 5 DAYS DIRECTED ON PACKAGING 06/17 completed Not Available Not Available Not Available Vitals Date Recorded Body height Body mass index (BMI) Body weight Heart rate Oxygen saturation Oxygen saturation in Arterial blood by Pulse oximetry Systolic blood pressure Diastolic blood pressure Provider Name and Address Organization Details Last Updated DateTime 2 177.8 cm 29 kg/m2 77896.6 6 g 66 /min 98 % 98 % 126 mm[Hg] 82 mm[Hg] [facility] 2 10:48:06 Date Recorded Body height Heart rate Oxygen saturation Oxygen saturation in Arterial blood by Pulse oximetry Systolic blood pressure Diastolic blood pressure Provider Name and Address Organization Details Last Updated DateTime 2 177.8 cm 71 /min 98 % 98 % 122 mm[Hg] 72 mm[Hg] [facility] 2 14:38:20 Date Recorded Body height Body mass index (BMI) Body weight Heart rate Oxygen saturation Oxygen saturation in Arterial blood by Pulse oximetry Systolic blood pressure Diastolic blood pressure Provider Name and Address Organization Details Last Updated DateTime 3 177.8 cm 28.4 kg/m2 71151.2 9 g 77 /min 98 % 98 % 128 mm[Hg] 70 mm[Hg] [facility] 3 09:54:09 Social History Question Answer Notes LastModified by Organizat ion Details LastModified Time Tobacco Smoking Status Never Smoker December Roselia[address]NE[address], [address], [facility] 08/03/2019 14:35:50 Do You Or Have You Ever Used E-cigarettes Or Vape? Never Used Electronic Cigarettes Information not available 08/03/2019 What Was The Date Of Your Most Recent Tobacco Screening? 06/19/2023 [email or web address] Information not available 06/19/2023 Do You Or Have You Ever Used Smokeless Tobacco? Never Used Smokeless Tobacco Information not available 08/03/2019 How Much Tobacco Do You Smoke? No Information not available 08/03/2019 How Many Years Have You Smoked Tobacco? 0 Information not available 08/03/2019 Do You Or Have You Ever Used Any Other Forms Of Tobacco Or Nicotine? No Information not available 06/19/2023 Sex: Unknown Functional Status None recorded. Mental Status None recorded. Family History Relationship Description Onset Age of this Age Resolved Age Notes LastModified by Organization Details LastModified Time Maternal Grandmother Heart valve disorder Not available 08/03 14:37:00 Maternal Grandmother Diabetes mellitus Not available 08/03 14:39:37 Paternal Grandmother Coronary arterioscler osis Not available 08/03 14:37:11 Paternal Grandmother Diabetes mellitus Not available 08/03 14:39:37 Paternal Grandmother Cerebrovascu lar accident Not available 14:39:55 Paternal Grandfather Coronary arterioscler osis Not available 08/03 14:37:24 Paternal Grandfather Heart valve disorder Not available 08/03 14:37:29 Paternal Grandfather Chronic obstructive pulmonary disease Not available 08/03 14:37:58 Paternal Grandfather Diabetes mellitus Not available 08/03 14:39:37 Maternal Grandfather Diabetes mellitus Not available 08/03 14:39:37 Mother Disorder of thyroid gland Not available 08/03 14:40:10 Father Hypertensive disorder Not available 08/03 14:40:15 Sister Crohn's disease Not available 08/03 14:40:31 Paternal Uncle Myocardial infarction 50 50 Not available 02/2019 14:41:01 Medical History No medical history recorded. Immunizations Vaccine Type Date Status Note Provider Nam e and Address Organization Details Recorded Time COVID-19, mRNA, LNP-S, PF, 30 mcg/0.3 mL dose 2 completed Not Available [facility] 07/10/2023 16:32:01 Td(adult) unspecified formulation 9 completed Not Available [facility] 07/10/2023 16:32:01 Tdap 9 completed Not Available [facility] 07/10/2023 16:32:01 meningococcal MCV4P 9 completed Not Available [facility] 07/10/2023 16:32:01 IPV 9 completed Not Available [facility] 07/10/2023 16:32:01 varicella 9 completed Not Available [facility] 07/10/2023 16:32:01 MMR 9 completed Not Available [facility] 07/10/2023 16:32:01 Hep B, unspecified formulation 9 completed Not Available [facility] 16:32:01 Hep A, pediatric, unspecified formulation 9 completed Not Available [facility] 07/10/2023 16:32:01 Hep A, pediatric, unspecified formulation 0 completed Not Available [facility] 07/10/2023 16:32:01 HPV, quadrivalent 6 completed Not Available [facility] 07/10/2023 16:32:01 HPV, quadrivalent 5 completed Not Available [facility] 07/10/2023 16:32:01 HPV, quadrivalent 5 completed Not Available [facility] 07/10/2023 16:32:01 rubella 3 completed Not Available [facility] 07/10/2023 16:32:01 Hep B, unspecified formulation 2 completed Not Available [facility] 07/10/2023 16:32:01 varicella 2 completed Not Available [facility] 07/10/2023 16:32:01 Anthrax, pre-exposure prophylaxis, post-exposure prophylaxis 2 completed Not Available [facility] 07/10/2023 16:32:01 Anthrax, pre-exposure prophylaxis, post-exposure prophylaxis 2 completed Not Available [facility] 07/10/2023 16:32:01 typhoid, ViCPs 2 completed Not Available [facility] 07/10/2023 16:32:01 vaccinia (smallpox) 2 completed Not Available [facility] 07/10/2023 16:32:01 influenza, intradermal, quadrivalent, preservative free 8 completed Not Available [facility] 07/10/2023 16:32:01 COVID-19, mRNA, LNP-S, PF, 30 mcg/0.3 mL dose 1 completed Not Available [facility] 07/10/2023 16:32:01 COVID-19, mRNA, LNP-S, PF, 30 mcg/0.3 mL dose 1 completed Not Available [facility] 07/10/2023 16:32:01 Past Encounters Encounter ID Performer Location Encounter Start Date Encounter Closed Date Diagnosis/Indication Diagnosis SNOMED-CT Code Diagnosis ICD10 Code Diagnosis Note [id number] December DEANNA Veloz [facility] [address] [facility],[place] [address] 08/03/2019 13:50:53 08/03/2019 15:11:42 Palpitations 32586128 R00.2 Gastroesop hageal reflux disease without esophagitis 334460355 K21.9 [id number] Isaías Alex DO [facility] [address] [facility],[place] [address] 03/27/2020 15:15:29 03/27/2020 15:59:46 Contact dermatitis 33171054 L25.9 Exposure to poison kyaw Numerous areas of erythemato us rash Will try high dose pred taper [id number] CARMENZA LISA [facility] [address] [facility],[place] [address] 05/21/2020 14:23:21 05/21/2020 15:44:24 Palpitations 40518263 R00.2 will increase script for metoprolol Chest pain 22586033 R07. 9 will fu with US and holter monitor to see if anything is cardiac [id number] CARMENZA LISA [facility] [address] [facility],[place] [address] 09/24/2020 09:37:15 09/24/2020 11:58:53 Acute maxillary sinusitis 48363866 J01.00 the patient has been on augmentin before with no problem will start on course and see if improvemen t Sinus tachycardia 243202 01 R00.0 needs refill, doing 90 scripts now due to cost saving [id number] CARMENZA LISA [facility] [address] [facility],[place] [address] 03/08/2021 13:49:16 03/08/2021 15:10:07 Dysfunction of eustachian tube 54658131 H69.93 will fu with ENT Fatigue 35076583 R53.83 will fu with lab work up Multiple joint pain 3567 8005 M25.50 fu with lab work [id number] Isaías Alex DO [facility] Internal Medicine [address] [facility],[place] [address] 05/03/2021 09:43:24 05/03/2021 10:41:38 Headache 57452072 R51.9 severe and assoc with syncope note daughter has a tortuous brain [place] [id number] CARMENZA LISA Internal [facility] [address] [facility] [address],[place] [address] 12/06/2021 11:46:17 12/09/2021 16:17:16 Acute sinusitis 03241913 J01.01 will start on z yanna and medrol dose paksevere sinus infection [id number] Isaías Alex DO [facility] Internal Medicine [address] [facility] [address] [address] 06/17/2022 10:40:33 06/17/2022 11:13:47 Active or passive immunization 266304648 Z23 utd Adult heal th examination 778251718 Z00.00 doing well no [place] [id number] CARMENZA LISA [facility] [address] [facility] [address] [address] 08/26/2022 14:21:35 08/27/2022 11:08:25 Laryngopharyngeal reflux 015644584 K21.9 will increase omeprazole dosage to 40 mgfamotidi ne will be added on board to use as neededwill see if this is effective and f/u in a few weeks Atypical chest pain 1025 18475 R07.89 [place] [id number] Isaías Alex DO [facility] Internal Medicine [address] [facility] [address] [address] 06/19/2023 09:48:28 06/19/2023 10:37:51 Adult health examination 447127508 Z00.00 doing well no major issuesneck pain is notably okdoing ok Fatigue 09072553 R53.83 noted ongoing and he has noted sometimtes waking up not breathing [id number] Isaías Alex DO [facility] Internal Medicine [address] [facility] [address] [address] 06/24/2024 09:05:49 06/24/2024 10:25:24 Palpitations 96152085 R00.2 stable now after complete work up [id number] CARMENZA LISA [facility] Internal Medicine [address] [facility] [address] [address] 09/23/2024 11:06:55 09/23/2024 13:25:07 Mass of neck 198554580 R22.1 lump on L side of neck, ddx LN, thyroid nodule, thyroid enlargemen t, lipoma, cyst, cancerous tumor (less likely given normal BW and no other symptoms Feeling of lump in throat 142044808 R09.89 Health Concerns Section Related Observation LastModified by Organization Detai ls LastModified Time None Recorded Concern Status LastModified by Organization Details LastModified Time None Recorded Advance Directives Directive None Recorded Payers Encounter Date Sequence Insurance Name Policy Number Policy [place] Covered Member ID [place] Member ID Guarantor Name 06/17/2022 1 [place] - DOS PRIOR TO 2024 - [employer] () [employer] [id number] [employer] 08/26/2022 1 [place] - DOS PRIOR TO 2024 - [employer] () [employer] [id number] [employer] 06/19/2023 1 [place] - DOS PRIOR TO 2024 - [employer] () [employer] [id number] [employer] 06/24/2024 1 [place] - DOS PRIOR TO 2024 - [employer] () [employer] [id number] [employer] 09/23/2024 1 [place] - DOS PRIOR TO 2024 - [employer] () [employer] [id number] [employer] Notes Date Note Type Note Provider Name and Address Organization Details Recorded Time 06/17/20 22 text/htm l Annual WellnessReported bypatient.Diet and Nutrition:healthy diet Fracture Risk:no history of fractures; no recent explained fracture; no sudden unexplained fractures; no previous musculoskeletal injuries Physical Activity:exercises on a regular basis; recent increase in physical activity; good physical condition Additional Lifestyle Factors:no tobacco use; no alcohol intake; stopped drinking alcohol Depression Risk:never feels sad, empty, or tearful; no loss of interest in activities; no significant changes in weight; no sleep disturbances or insomnia; no agitation; no loss of energy; no feelings of worthlessness or guilt; no thoughts of suicide; no history of depression; no history of mood disorders Hearing:no loss of hearing Vision:no vision problems Isaías WilliamMartin Alex DO [address] [place], [id number], [facility] 06/17/2022 11:12:27 08/26/20 22 text/htm l ER f/u the patient was in the ER due to left sided chest pain radiating down the left farideh the setting of prior left sided chest pain and inability to breath the patient will fu with patientpossible LGR will start on ome 40 mg and famotidine 20 mg BID will also set up with cardiologywill also fu with patient in a few weeks CARMENZA LISA [address] [place], [phone], [facility] 08/26/2022 15:06:31 06/19/20 23 text/htm l here for jaxon and is doing okno major issues Isaías NataliiaMartin Alex DO [address] [place], [id number], [facility] 06/19/2023 10:27:44 06/24/20 24 text/htm l patient is evaluated via tele/video assessment per patient consentduring current pandemic talked about his episode of palpitationsdeveloped a pain in the neck during and went to ERhe had been under severe stressfull work up in ER and has been good since Isaías Alex DO [address] [place], [id number], [facility] 06/24/2024 09:55:02 09/23/20 24 text/htm l c/o lump The patient is participating in this appointment via telemedicine communication with a phone call/video calling service (Doxy)The patient consents to use of these platforms in place of an in-person appointment due to either sick symptoms the patient is presenting with or current office closure due to COVID exposure in order to keep our office staff and patients safe the patient reports that he has a lump on the left side of his throatthe patient reports that is wear he had been noticing the foreign body sensation when he swallowsthe patient reports that it is mobile, not attached further back in his throat, doesn't feel like where his thyroid would be but he is not sureno tenderness on palpation of the lumpno skin changes, no drainageno warmth, no redness noticed it around a month agohasn't gotten bigger that he has noticed no other symptoms, denies fatigue, easy bruising, cold/heat intolerance, skin changes, nail changes, fever, chills, chest pain recommended US to identify what it is pt did note he has had swollen LN's in the past like his current lump tonsils intact CARMENZA LISA [address] [place] [address], [place], [phone], [facility] 09/23/2024 12:16:01
--- OUTSIDE RECORDS SUMMARY | 2024-12-07 10:54 | XMS_ITS | Continuity of Care Document ---
Author Name [facility] Organization [facility] Care Team Providers Care Regional Project Manager Name Role Phone [facility] Unavailable Unavailable Problems Combined list of problems from Department of Defense and Veterans Affairs facilities. It does not include entries that were removed or entered in error. Problem Status Onset Date Problem Type Date of Resolution Comments Source Cervicalgia Active 07/22/2016 Condition DoD lack of adequate sleep Active Condition DoD ankle joint pain Active Condition DoD corneal foreign body left eye Inactive Condition DoD astigmatism Active Condition DoD atypical chest pain Inactive Condition D oD Outpatient Physician Consultation Active Condition DoD chest pain or discomfort Inactive Condition DoD injury caused by animal venomous spider bite Inactive Condition DoD lump in / on the skin Active Condition [facility] visit for: administrative purpose Inactive Condition DoD joint pain, localized in the left shoulder Active Condition DoD heartburn Active Condition DoD 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 Fbs removed. Will give vigamox, ambien for sleep DoD Patient Education Dietary Inactive Condition DoD upper respiratory infection Inactive Condition DoD Blood Pressure Isolated Elevated Inactive Condition DoD vasovagal syncope Inactive Condition [facility] Spectacles Services Fitting Monofocal Except For Aphakia Inactive Condition [facility] refractive error - myopia Active Condition [facility] astigmatism regular Active Condition Do D visit for: services physical Active Condition [facility] visit for: issue medical certificate Inactive Condition DoD Medications Combined list of outpatient medications from Department of Defense and Veterans Affairs facilities.Medications provided include 1) outpatient medications from the last 15 months, and 2) patient-reported medications. Medication Details Route Status Patient Instructions Prescription Expires Prescription Number Last Dispense Date Ordering Provider Order Date Order Qty Source AZITHROMYCI N (azithromyc in), 250 MG, TABLET, ORAL, LUPIN PHARMACEU, 6 ea. BLIST PACK Active [id number] 2023 6 Pharmac y Data Transac tion Service Facilit y METOPROLOL SUCCINATE (metoprolol succinate), 50 MG, TAB ER 24H, ORAL, INGENUS PHARMAC, 1000 ea. BOTTLE Active 4 2023 180 Pharmac y Data Transac tion Service Facilit y PREDNISONE (prednisone ), 10 MG, TABLET, ORAL, MYLAN, 1000 ea. BOTTLE Active [id number] 4 2023 45 Pharmac y Data Transac tion Service Facilit y Allergies, Adverse Reactions, Alerts Combined list of allergies from Department of Defense and Veterans Affairs facilities. It does not include entries that were removed or entered in error. Substance Category Reaction Severity Reaction type Status Date Reported Comments Source cefadroxil Propensity to adverse reactions to substance Urticaria Active 2 Unknown Organizat ion CEPHALOSPORI NS Drug allergy (disorder) Unknown active 0 48 [employer] cephalospori ns Drug allergy Rash, Unknown Moderate Active 0 Reaction( s): Unknown; Note: Duricef<b r/>Replac ed free text allergy<b r/>Added as Codified 8344R-439 AMDS doxycycline Propensity to adverse reactions to substance Vomiting Active 6 Unknown Organizat ion DOXYCYCLINE HYCLATE (DOXYCYCLINE HYCLATE) Drug allergy (disorder) Vomiting active 6 27 [facility] DURICEF (CEFADROXIL HYDRATE) Drug allergy (disorder) Urticaria active 2 Special [facility] Shellfish Food allergy Vomiting Mild Active 8344R-439 AMDS Immunizations Combined list of available immunizations from the Department of Defense and Veterans Affairs facilities. Immunization Series Date Given Administered By Site Reaction Lot Number CVX Code Drug Dietitian Teacher Status Comments Source COVID-19, mRNA, LNP-S, PF, 30 mcg/0.3 mL dose, joe-sucrose 2021 BOGDASARIAN, () Not Given COVID-19, mRNA, LNP-S, PF, 30 mcg/0.3 mL dose, joe-sucr ose DoD influenza, injectable, quadrivalent- pf 2019 [id number] 150 Seqirus complet ed influenza , injectabl e, quadrival ent-pf 08/05/20 Given Ambulat ory Pharmac y Influenza, inj, MDCK, quadrivalent- pf 2018 171 complet ed Influenza , inj, MDCK, quadrival ent-pf 08/09/19 Given Ambulat ory Pharmac y Influenza, injectable, MDCK, preservative free, quadrivalent 2018 Rachel LANGE () Not Given Influenza , injectabl e, MDCK, preservat sharon free, quadrival ent DoD tetanus-dipht h toxoids (Td) adult/adol 2018 [id number] sanofi pasteur complet ed tetanus-d iphth toxoids (Td) adult/ado l 11/01/18 Given Ambulat ory Pharmac y tetanus-dipht h toxoids (Td) adult/adol 2018 [id number] 09 sanofi pasteur complet ed tetanus-d iphth toxoids (Td) adult/ado l 11/01/18 Given Ambulat ory Pharmac y tetanus and diphtheria toxoids, adsorbed, preservative free, for adult use (2 Lf of tetanus toxoid and 2 Lf of diphtheria toxoid) 2 2018 [id number] 09 Sanofi Pasteur ([facility]) complet ed tetanus and diphtheri a toxoids, adsorbed, preservat sharon free, for adult use (2 Lf of tetanus toxoid and 2 Lf of diphtheri a toxoid) DoD influenza, injectable, quadrivalent- pf 2017 [id number] 150 Seqirus complet ed influenza , injectabl e, quadrival ent-pf 07/15/18 Given Ambulat ory Pharmac y influenza, injectable, quadrivalent- pf 2017 [id number] 150 Seqirus complet ed influenza , injectabl e, quadrival ent-pf 07/15/18 Given Ambulat ory Pharmac y Influenza, injectable, quadrivalent, preservative free 1 2017 [id number] 150 Seqirus (SEQ) comple t ed Influenza , injectabl e, quadrival ent, preservat shraon free [facility] influenza virus vaccine, inactivated 2016 [id number] 88 Seqirus complet ed influenza virus vaccine, inactivat ed 08/06/17 Given Ambulat ory Pharmac y influenza virus vaccine, inactivated 2016 [id number] 88 Seqirus complet ed influenza virus vaccine, inactivat ed 08/06/17 Given Ambulat ory Pharmac y Influenza, injectable, Madin Steph Canine Kidney, quadrivalent with preservative 9 2016 [id number] 186 Seqirus (SEQ) comple t ed Influenza , injectabl e, Madin Steph Canine Kidney, quadrival ent with preservat sharon DoD influenza, seasonal, injectable-pf 2015 [id number] 140 Seqirus complet ed influenza , seasonal, injectabl e-pf 07/10/16 Given Ambulat ory Pharmac y influenza, seasonal, injectable-pf 2015 [id number] 140 Seqirus complet ed influenza , seasonal, injectabl e-pf 07/10/16 Given Ambulat ory Pharmac y Influenza, seasonal, injectable, preservative free 8 2015 [id number] 140 Seqirus (SEQ) comple t ed Influenza , seasonal, injectabl e, preservat sharon free DoD Human Papillomaviru s,quadrivalen t(HPV4) 2015 [id number] 62 [employer] complet ed Human Papilloma virus,mack drivalent (HPV4) 12/03/15 Given Ambulat ory Pharmac y Human Papillomaviru s,quadrivalen t(HPV4) 2015 [id number] 62 [employer]Fab & Featurespace Inc complet ed Human Papilloma virus,mack drivalent (HPV4) 12/03/15 Given Ambulat ory Pharmac y human papilloma virus vaccine, quadrivalent 1 2015 [id number] 62 Merck (MSD) complet ed human papilloma virus vaccine, quadrival ent DoD influenza, seasonal, injectable-pf 2014 [id number] 140 CSL Behring complet ed influenza , seasonal, injectabl e-pf 08/15/15 Given Ambulat ory Pharmac y influenza, seasonal, injectable-pf 2014 [id number] 140 CSL Behring complet ed influenza , seasonal, injectabl e-pf 08/15/15 Given Ambulat ory Pharmac y Influenza, seasonal, injectable, preservative free 7 2014 [id number] 140 CSL Imprimis Pharm[employer], Inc. (CSL) complet ed Influenza , seasonal, injectabl e, preservat sharon free DoD Human Papillomaviru s,quadrivalen t(HPV4) 2014 [id number] 62 Merck & Company Inc complet ed Human Papilloma virus,mack drivalent (HPV4) 06/11/15 Given Ambulat ory Pharmac y Human Papillomaviru s,quadrivalen t(HPV4) 2014 [id number] 62 Merck & Company Inc complet ed Human Papilloma virus,mack drivalent (HPV4) 06/11/15 Given Ambulat ory Pharmac y human papilloma virus vaccine, quadrivalent 0 2014 [id number] 62 Merck (MSD) complet ed human papilloma virus vaccine, quadrival ent DoD Human Papillomaviru s,quadrivalen t(HPV4) 2014 [id number] 62 Merck & Company Inc complet ed Human Papilloma virus,mack drivalent (HPV4) 10/05/14 Given Ambulat ory Pharmac y Human Papillomaviru s,quadrivalen t(HPV4) 2014 [id number] 62 Merck & Company Inc complet ed Human Papilloma virus,mack drivalent (HPV4) 10/05/14 Given Ambulat ory Pharmac y human papilloma virus vaccine, quadrivalent 0 2014 [id number] 62 Merck (MSD) complet ed human papilloma virus vaccine, quadrival ent DoD influenza, live, intranasal,qu adrivalent 2013 [id number] 149 Medimmune Inc comple t ed influenza , live, intranasa l,quadriv alent 07/13/14 Given Ambulat ory Pharmac y influenza, live, intranasal,qu adrivalent 2013 [id number] 149 Medimmune Inc comple t ed influenza , live, intranasa l,quadriv alent 07/13/14 Given Ambulat ory Pharmac y influenza, live, intranasal, quadrivalent 6 2013 [id number] 149 [employer] Inc. (MED) complet ed influenza , live, intranasa l, quadrival ent DoD influenza, seasonal, injectable 2012 [id number] 1A 141 CSL Behring complet ed influenza , seasonal, injectabl e 08/18/13 Given Ambulat ory Pharmac y influenza, seasonal, injectable 2012 [id number] 1A 141 CSL Behring complet ed influenza , seasonal, injectabl e 08/18/13 Given Ambulat ory Pharmac y Influenza, seasonal, injectable 5 2012 [id number] 1A 141 CSL Biotherapies, Inc. (CSL) complet ed Influenza , seasonal, injectabl e DoD rubella virus vaccine 0 2012 06 () Not Given rubella virus vaccine DoD varicella virus vaccine 1 2011 UNK 21 Unknown (UNK) Not Given varicella virus vaccine DoD hepatitis B vaccine, unspecified formulation 1 2011 UNK 45 Unknown (UNK) Not Given hepatitis B vaccine, unspecifi ed formulati on DoD influenza, seasonal, injectable 2011 [id number] 141 sanofi pasteur complet ed influenza , seasonal, injectabl e 06/23/12 Given Ambulat ory Pharmac y influenza, seasonal, injectable 2011 [id number] 141 sanofi pasteur complet ed influenza , seasonal, injectabl e 06/23/12 Given Ambulat ory Pharmac y Influenza, seasonal, injectable 0 2011 [id number] 141 Sanofi Pasteur ([facility]) complet ed Influenza , seasonal, injectabl e DoD anthrax vaccine 2011 [id number] 24 Emergent Biosolutions complet ed anthrax vaccine 04/16/12 Given Ambulat ory Pharmac y anthrax vaccine 2 2011 [id number] 24 Emergent [employer] Elizabeth (MIP) complet ed anthrax vaccine DoD anthrax vaccine 2011 [id number] 24 [employer]olutions complet ed anthrax vaccine 03/11/12 Given Ambulat ory Pharmac y anthrax vaccine 2011 [id number] 24 [employer] complet ed anthrax vaccine 03/11/12 Given Ambulat ory Pharmac y anthrax vaccine 1 2011 [id number] 24 [employer] Elizabeth (MIP) complet ed anthrax vaccine DoD vaccinia (smallpox) vaccine 2011 [id number] 75 DermaMedics complet ed vaccinia (smallpox ) vaccine 03/08/12 Given Ambulat ory Pharmac y typhoid Vi capsular polysaccharid e vac 2011 [id number] 101 sanofi pasteur complet ed typhoid Vi capsular polysacch aride vac 03/08/12 Given Ambulat ory Pharmac y typhoid Vi capsular polysaccharid e vac 2011 G1124 101 sanofi pasteur complet ed typhoid Vi capsular polysacch aride vac 03/08/12 Given Ambulat ory Pharmac y vaccinia (smallpox) vaccine 2011 [id number] 75 DermaMedics complet ed vaccinia (smallpox ) vaccine 03/08/12 Given Ambulat ory Pharmac y vaccinia (smallpox) vaccine 1 2011 [id number] 75 [facility] complet ed vaccinia (smallpox ) vaccine [facility] typhoid Vi capsular polysaccharid e vaccine 1 2011 G1124 101 Sanofi Pasteur ([facility]) complet ed typhoid Vi capsular polysacch aride vaccine DoD influenza virus vaccine, live 2010 [id number] 111 coJuvo Inc comple t ed influenza virus vaccine, live 06/03/11 Given Ambulat ory Pharmac y influenza virus vaccine, live 2010 [id number] 111 Pierce [employer] Inc comple t ed influenza virus vaccine, live 06/03/11 Given Ambulat ory Pharmac y influenza virus vaccine, live, attenuated, for intranasal use 1 2010 [id number] 111 [employer]. (MED) complet ed influenza virus vaccine, live, attenuate d, for intranasa l use DoD influenza virus vaccine,split 2009 [id number] 15 sanofi pasteur complet ed influenza virus vaccine,s plit 06/04/10 Given Ambulat ory Pharmac y influenza virus vaccine,split 2009 [id number] 15 sanofi pasteur complet ed influenza virus vaccine,s plit 06/04/10 Given Ambulat ory Pharmac y influenza virus vaccine, split virus (incl. purified surface antigen)-reti red CODE 1 2009 [id number] 15 Sanofi Pasteur ([facility]) complet ed influenza virus vaccine, split virus (incl. purified surface antigen)- retired CODE DoD Hep A, pediatric, unspecified formul 2009 [id number] 0CA 31 GlaxoSmithKli ne complet ed Hep A, pediatric , unspecifi ed formul 02/06/10 Given Ambulat ory Pharmac y Hep A, pediatric, unspecified formul 2009 [id number] 0CA 31 GlaxoSmithKli ne complet ed Hep A, pediatric , unspecifi ed formul 02/06/10 Given Ambulat ory Pharmac y hepatitis A vaccine, pediatric dosage, unspecified formulation 2 2009 [id number] 0CA 31 SmithKline (SKB) complet ed hepatitis A vaccine, pediatric dosage, unspecifi ed formulati on [facility] Novel influenza-H1N -, injectable 2009 [id number] 1A 127 Novartis Pharmaceutica ls complet ed Novel influenza -C5J1-54, injectabl e 10/06/09 Given Ambulat ory Pharmac y Novel influenza-H1N 1-09, injectable 2009 [id number] 1A 127 Novartis Pharmaceutica ls complet ed Novel influenza -W3G4-38, injectabl e 10/06/09 Given Ambulat ory Pharmac y Novel influenza-H1N 1-09, injectable 1 2009 [id number] 1A 127 Novartis Pharmaceutica l Damon. (NOV) complet ed Novel influenza -C5P0-58, injectabl e DoD Hep A, pediatric, unspecified formul 2008 [id number] 6BA 31 GlaxoSmithKli ne complet ed Hep A, pediatric , unspecifi ed formul 06/20/09 Given Ambulat ory Pharmac y measles/mumps /rubella virus vaccine 2008 [id number] 03 Merck & Company Inc complet ed measles/m umps/rube lla virus vaccine 06/20/09 Given Ambulat ory Pharmac y measles/mumps /rubella virus vaccine 2008 [id number] 03 Merck & Company Inc complet ed measles/m umps/rube lla virus vaccine 06/20/09 Given Ambulat ory Pharmac y Hep A, pediatric, unspecified formul 2008 [id number] 6BA 31 GlaxoSmithKli ne complet ed Hep A, pediatric , unspecifi ed formul 06/20/09 Given Ambulat ory Pharmac y measles, mumps and rubella virus vaccine 1 2008 [id number] 03 Merck (MSD) complet ed measles, mumps and rubella virus vaccine DoD varicella virus vaccine 1 2008 21 () Not Given varicella virus vaccine DoD hepatitis A vaccine, pediatric dosage, unspecified formulation 1 2008 [id number] 6BA 31 Welcu (SKB) complet ed hepatitis A vaccine, pediatric dosage, unspecifi ed formulati on DoD hepatitis B vaccine, unspecified formulation 1 2008 45 () Not Given hepatitis B vaccine, unspecifi ed formulati on DoD tuberculin purified protein derivative 2008 [id number] 96 sanofi pasteur complet ed tuberculi n purified protein derivativ e 06/17/09 Given Ambulat ory Pharmac y influenza virus vaccine,split 2008 [id number] 1A 15 CSL Behring complet ed influenza virus vaccine,s plit 06/14/09 Given Ambulat ory Pharmac y tetanus, diphtheria, acellular pertu is 2008 [id number] 6BA 115 GlaxoSmithKli ne complet ed tetanus, diphtheri a, acellular pertussis 06/14/09 Given Ambulat ory Pharmac y meningococcal A,C,Y,W-135 (MCV4P) 2008 [id number] 114 sanofi pasteur complet ed meningoco ccal A,C,Y,W-1 35 (MCV4P) 06/14/09 Given Ambulat ory Pharmac y poliovirus vaccine, inactivated 2008 [id number] 10 sanofi pasteur complet ed polioviru s vaccine, inactivat ed 06/14/09 Given Ambulat ory Pharmac y tetanus, diphtheria, acellular pertu is 2008 [id number] 6BA 115 GlaxoSmithKli ne complet ed tetanus, diphtheri a, acellular pertussis 06/14/09 Given Ambulat ory Pharmac y poliovirus vaccine, inactivated 2008 [id number] 10 sanofi pasteur complet ed polioviru s vaccine, inactivat ed 06/14/09 Given Ambulat ory Pharmac y meningococcal A,C,Y,W-135 (MCV4P) 2008 [id number] 114 sanofi pasteur complet ed meningoco ccal A,C,Y,W-1 35 (MCV4P) 06/14/09 Given Ambulat ory Pharmac y influenza virus vaccine,split 2008 [id number] 1A 15 CSL Behring complet ed influenza virus vaccine,s plit 06/14/09 Given Ambulat ory Pharmac y poliovirus vaccine, inactivated 1 2008 [id number] 10 Sanofi Pasteur ([facility]) complet ed polioviru s vaccine, inactivat ed DoD influenza virus vaccine, split virus (incl. purified surface antigen)-reti red CODE 1 2008 [id number] 1A 15 CS Biotherapies, Inc. (CS) complet ed influenza virus vaccine, split virus (incl. purified surface antigen)- retired CODE DoD meningococcal polysaccharid e (groups A, C, Y and W-135) diphtheria toxoid conjugate vaccine (MCV4P) 1 2008 [id number] 114 Sanofi Pasteur ([facility]) complet ed meningoco ccal polysacch aride (groups A, C, Y and W-135) diphtheri a toxoid conjugate vaccine (MCV4P) DoD tetanus toxoid, reduced diphtheria toxoid, and acellular pertu is vaccine, adsorbed 1 2008 [id number] 6BA 115 SmithKline (SKB) complet ed tetanus toxoid, reduced diphtheri a toxoid, and acellular pertussis vaccine, adsorbed DoD Results Combined list of recent chemistry, hematology and other laboratory results from Department of Defense and [facility], ranging from 15 months to all on record, depending upon the facility. Order Name Results Value Reference Range Date Interpretation Specimen Comments Source Infectiou s Disease HIV-1/O/2 Non-Reac tive 1 (01/02/24 8:58 AM) 01/01 N Interpretiv e Data: INTERPRETAT ION: This method is a screening procedure for the detection of HIV p24 Antigen and Antibodies to HIV-1, including Group O, and/or HIV-2. NON-REACTIV E: HIV-1 antigen and HIV-1 / HIV-2 antibodies were not detected. No laboratory evidence of HIV infection. A negative test result does not exclude the possibility of exposure to or infection with HIV. HIV antibodies and/or p24 antigen may be undetectabl e in some stages of the infection and in some clinical conditions. If acute HIV infection is suspected, consider submitting another specimen to a reference laboratory for HIV-1 RNA. SCREEN REACTIVE - CONFIRMATIO N TO FOLLOW: Possible presence of HIV-1antibo dies, HIV-2 antibodies and/or HIV-1 p24 antigen. Specimen will reflex to the confirmatio n testing that fulfills the Center for Disease Control and Prevention' s HIV diagnostic algorithm. Refer to [facility] Lab Guide for additional information : [email or web address] x Testing performed by Lyla fernandez. [address] [facility] Miscellan eous Sendouts Repository Sample Received (01/02/24 8:58 AM) 01/01 N [address] [facility] Vital Signs Combined list of inpatient and outpatient Vital Signs from Department of Defense and Veterans Affairs, ranging from 12 months to all on record, depending upon the facility. Vital Sign Value Date Comments Source Peripheral Pulse Rate 67 bpm 02/28/2023 19:11:00 8344R-439 AMDS Systolic Blood Pressure 128 mm[Hg] 02/28/2023 19:11:00 8344R-439 AMDS Diastolic Blood Pressure 75 mm[Hg] 02/28/2023 19:11:00 8344R-439 AMDS Encounters Combined list of: 1) Encounters from Department of Veterans Affairs facilities going backup to the last 18 months, not all VA inpatient encounters are included; 2) Encounters from the Department of Defense facilities going backup to 280 months. Location Location Details Encounter Type Encounter Number Reason For Visit Attending Provider ADM Date DC Date Status Disposition Source [facility](Psy [facility]ology [facility]) OUTPATIENT [id number] [place] KEVIN Polo 09/06 Released w/o Limitations [employer] [facility](P sycholo gy Clinic) [facility]([address] [facility] [address] [facility]) OUTPATIENT [id number] AURE Nunez 02/06 Released w/o Limitations [facility]([address] [facility]) [employer](Rn Endoscopy Optometry Clinic) OUTPATIENT [id number] optomet ry RAÚL GUEVARA 02/13 Released w/o Limitations [employer](C ro Optomet ry Clinic) [employer]([address] [facility] [place]) OUTPATIENT [id number] Pt passed out ANAND LOPEZ 12/18 Released w/o Limitations [facility]([address] [facility]) [employer]([address] [facility] [place]) OUTPATIENT [id number] Ear needs drainin g ANAND LOPEZ 02/06 Released w/o Limitations [facility]([address] [facility]) [employer] [facility]([address] [facility]) OUTPATIENT [id number] PHA ANAND LOPEZ 03/18 Released w/o Limitations [facility]([address] [facility]) [employer]([facility] Team A) OUTPATIENT [id number] L eye pain ANAND LOPEZ 08/20 Released w/o Limitations [employer](C ro C Team A) [facility]) OUTPATIENT [id number] CC PHA-DCR ANA HOGAN 02/17 Released w/o Limitations [facility] THOMAS [facility] [employer] [facility] ) [facility](Dep loyment Health Assessmen t) OUTPATIENT [id number] Notes Entered by: ZIA GOLDSTEIN 11 Mar 2012 0959 ------- ------- ------- ------- -- MONI HECTOR 03/11 Released w/o Limitations [facility](D eployme nt Health Assessm ent) [facility] OUTPATIENT [id number] Theater Provider 10/15 Released w/o Limitations Theater Facilit y [facility](Dep loyment Health Assessmen t) OUTPATIENT [id number] Notes Entered by: ZIA GOLDSTEIN 04 Nov 2012 0913 ------- ------- ------- ------- -- DHA#2 CHRIS KOCH 11/04 Released w/o Limitations [facility](D eployme nt Health Assessm ent) [facility] [place]) OUTPATIENT [id number] Left Eye Issues -DU Chaves 11/05 Released w/o Limitations [facility](O ptometr y Clinic [facility]) [facility](Can non_FHC_T eam B) OUTPATIENT [id number] DHA #3 WALE MANCIA 02/16 Released w/o Limitations [facility](C jenna_F HC_Team B) [facility](Can non_FHC_T eam B) TELE CONSULT [id number] Notes Entered by: SA TEODORA MANCIA 18 Feb 2013 0852 ------- ------- ------- ------- -- Xray results MANCIA WALE Jameson 02/18th [facility](C annon_F HC_Team B) [facility] [employer] [facility]) OUTPATIENT [id number] [facility] KEISHA CEEMEGHAN HUI 03/07 Released w/o Limitations [facility] THOMAS [employer] [facility] ) [facility](Can non_FHC_T eam B) TELE CONSULT [id number] Notes Entered by: GEE SHARMA 27 Apr 2013 0821 ------- ------- ------- ------- -- BITE BY REGINA STANLEY 04/27th [facility](C annon_F HC_Team B) [facility]) TELE CONSULT [id number] Notes Entered by: GINA KINGSTON 28 Apr 2013 1316 ------- ------- ------- ------- -- ER Log Follow Up GINA KINGSTON 04/28 [facility]) [facility](Can non_FHC_T eam B) TELE CONSULT [id number] Notes Entered by: DAMARI LEVINE 06 Jun 2013 0815 ------- ------- ------- ------- -- HEART BEAT IN THROAT AND STARTIN G TO MAKE CHEST HURT BLANCO ARANA 06/06th [facility](C annon_F HC_Team B) [facility](Can non_FHC_T eam B) OUTPATIENT [id number] Chest pain since TRISHA Cooper 06/07 Released w/o Limitations [facility](C annon_F HC_Team B) [facility](Can non FHC Team P) TELE CONSULT [id number] Notes Entered by: RUDDY ONTIVEROS 08 Jun 2013 1639 ------- ------- ------- ------- -- Chest pain SIMEON ONTIVEROS 06/08th [employer]([place] [facility] Team P) [facility] [employer](Can non_[facility]_T eam B) TELE CONSULT [id number] Notes Entered by: JUAN RAMON CARO RA 09 Jun 2013 1030 ------- ------- ------- ------- -- referDIONE Jerez 06/09 Referred for Appointment [facility] [employer]([facility]i grossmanF HC_Team B) th [facility] [employer] [facility] [employer](Can non_[facility]_T eam B) OUTPATIENT [id number] Notes Entered by: JUAN RAMON CARO RA 09 Jun 2013 1420 ------- ------- ------- ------- -- er follow up TRISHA CARO 06/09 Released with Work/Duty Limitations th [employer]([place] [facility]_Team B) [facility] [employer]([facility]) TELE CONSULT [id number] Notes Entered by: GINA KINGSTON 09 Jun 2013 1611 ------- ------- ------- ------- -- ER Log Follow Up GINA KINGSTON 06/09th [employer]([facility]) th [facility] [employer] [facility] [employer](Can non_[facility]_T ea B) TELE CONSULT [id number] Notes Entered by: JUAN RAMON CARO RA 10 Jun 2013 1603 ------- ------- ------- ------- -- Returni ng phone call TRISHA CARO 06/10th [employer]([facility] ngocF HC_Team B) th [facility] [employer] [facility] [employer](Can non_[facility]_T eam B) TELE CONSULT [id number] Notes Entered by: RENETTA GILES 01 Jul 2013 1016 ------- ------- ------- ------- -- Network Results - Cardiol ogy- 06/2013 WALE MANCIA 07/01th [employer](C jenna_F HC_Team B) [facility] [employer](Can non_[facility]_T eam B) TELE CONSULT [id number] Notes Entered by: Nataliia ANN 06 Jul 2013 1024 ------- ------- ------- ------- -- Network Results - Cardiol ogy Procedu re - 06/2013 WALE MANCIA 07/06th [employer](C jenna_F HC_Team B) [facility] [employer](Opt ometry [facility]) OUTPATIENT [id number] CC ANNUAL EXAM GAVE JASPER VALDES 07/26 Released w/o Limitations [employer](O ptometr y [facility]) [facility] [employer]([facility]) TELE CONSULT [id number] Notes Entered by: GINA KINGSTON 26 Jul 2013 1042 ------- ------- ------- ------- -- ER Log Follow Up GINA KINGSTON 07/26 [employer]([facility]) [facility] [employer]([facility]) TELE CONSULT [id number] Notes Entered by: GINA KINGSTON 28 Jul 2013 1441 ------- ------- ------- ------- -- ER Log Follow Up GINA KINGSTON 07/28 [employer]([facility]) [facility] [employer](Can non_[facility]_T eam B) TELE CONSULT [id number] Notes Entered by: SHAZIA LANTIGUA 03 Aug 2013 1139 ------- ------- ------- ------- -- DIARRHE A, NAUSEA, STOMACH PAIN/CR AMPING, LOSS OF APPETIT E BLANCO ARANA 08/03th [employer](C annon_F HC_Team B) th [facility] [employer] [facility] [employer](Can non_[facility]_T eam B) OUTPATIENT [id number] CC F/U FROM ER VISIT [facility] ON 23 JUL 2013-CW WALE MANCIA 08/12 Released with Work/Duty Limitations th [employer](C annon_F HC_Team B) th [employer](Opt ometry [facility]) OUTPATIENT [id number] Notes Entered by: Brandon WAGNER 19 Sep 2013 0732 ------- ------- ------- ------- -- Feels like gem ng is in his left eye. JASPER BIANCHI 09/19 Released w/o Limitations [employer] [facility] [employer] [facility] [employer](O ptometr y [facility]) th [facility] [employer](Can non_[facility]_T eam B) TELE CONSULT [id number] Notes Entered by: URIAH MORALES 22 Sep 2013 0903 ------- ------- ------- ------- -- Network Results - Cardiol ogy - 08/2013 WALE MANCIA 09/22th [employer] [employer] [facility] [employer](C annrupali_F HC_Team B) th [facility] [employer] [facility] [employer](Can non_[facility]_T eam B) OUTPATIENT [id number] Rolled ankle at PT BLANCO ARANA 12/09 Immediate Referral th [facility] [employer] [facility] [employer](C annon_F HC_Team B) th [facility] [employer] [facility] [employer](Phy [facility]ical Therapy [place]) OUTPATIENT [id number] RACHELE MCKENZIE 12/09 Released w/o Limitations th [facility] [employer] [facility] [employer](P hysical Therapy [place]) th [facility] [employer] [facility] [place]) OUTPATIENT [id number] RACHELE MCKENZIE 12/16 Released w/o Limitations [employer] [facility] [employer] [facility] [employer](P [facility]ysical Therapy [place]) th [facility] [employer] [facility]ical [facility] [place]) OUTPATIENT [id number] RACHELE MCKENZIE 01/03 Released w/o Limitations [employer] [employer] [facility] [employer](P hysical Therapy [place]) th [employer](Dep [facility]) OUTPATIENT [id number] Notes Entered by: ZIA GOLDSTEIN 07 Mar 2014 0945 ------- ------- ------- ------- -- FLETCHER#4 MATT JIMENEZ 03/07 Released w/o Limitations [employer] [employer] [facility] [employer]([facility]) th [facility] [employer] [facility] [employer](Can non_[facility]_T eam B) OUTPATIENT [id number] PAIN IN RIGHT ELBOW HARRIET GOMES 03/14 Released w/o Limitations [employer](C annon_F HC_Team B) th [employer] [facility] [employer]([facility] [employer]) OUTPATIENT [id number] Notes Entered by: ERNESTO EKRNS 2014 1346 ------- ------- ------- ------- -- ERNESTO BARBOUR 03/14 Released w/o Limitations [employer] [facility] [employer] [facility] [employer](P [facility] [employer] ) th [facility] [employer] [facility] [employer](Can non_[facility]_T eam B) OUTPATIENT [id number] CC: RIGHT HAND PALM PAIN LIZZIE BLAIR 04/19 Released w/o Limitations th [employer] [employer] [facility] [employer](C annon_F HC_Team B) [facility] [employer](Can non_[facility]_T eam B) TELE CONSULT [id number] Notes Entered by: NICK PANDYA 24 Apr 2014 0912 ------- ------- ------- ------- -- RIGHT HAND PAIN--- XRAY RESULTS SUMITPAT SANTIAGOGABRIELE Hwang 04/24th [employer] [facility] [employer](C annon_F HC_Team B) th [facility] [employer] [facility] [employer](Can non_[facility]_T eam B) TELE CONSULT [id number] Notes Entered by: ALBA FELIX 15 May 2014 1244 ------- ------- ------- ------- -- Medicat ion refill ALBA WHITE 05/15 Advice Assessment th [facility] [employer] [facility] [employer](C annon_F HC_Team B) th [facility] [employer](Can non_[facility]_T eam B) TELE CONSULT [id number] Notes Entered by: DAMARI LEVINE 03 Jul 2014 0736 ------- ------- ------- ------- -- SEEN IN ER [facility] [place] REGINA WHITE 07/03 [employer](C annon_F HC_Team B) th [facility] [employer] [facility] [employer](Can non_[facility]_T eam B) OUTPATIENT [id number] seen in ER-[facility]- sprain R knee, bruised both shoulde rs LIZZIE BLAIR 07/04 Released w/o Limitations th [employer] [facility] [employer] [facility] [employer](C annon_F HC_Team B) th [facility] [employer](Can non_[facility]_T eam B) OUTPATIENT [id number] CC F/U SHOULDE R INJURY LIZZIE BLAIR 07/28 Released w/o Limitations th [employer] [employer] [facility] [employer](C annon_F HC_Team B) th [facility] [employer](Can non_[facility]HC_T eam B) TELE CONSULT [id number] Notes Entered by: URIAH MORALES 30 Aug 2014 1654 ------- ------- ------- ------- -- NETWORK RESULTS -MRI L AL R-08/11 LIZZIE BLAIR 08/30 [employer] [facility] [employer] [facility] [employer]([facility]enna_F HC_Team B) [facility](Can non_[facility]_T eam B) TELE CONSULT [id number] Notes Entered by: ALBA FELIX 07 Sep 2014 1404 ------- ------- ------- ------- -- MRI results ALBA WHITE 09/07 Referred for Appointment th [facility] [employer] [facility] [employer](C annrupali_F HC_Team B) th [facility] [place]) OUTPATIENT [id number] CC ANNUAL EYE EXAM\ RAJINDER RIBEIRO 09/11 Released w/o Limitations [employer] [facility] [employer] [facility] [employer](O ptometr y [facility] [place]) [employer] [facility] [employer](Can non_[facility]_T eam B) OUTPATIENT [id number] Al r pain/MR I normal LIZZIE BLAIR 09/27 Released w/o Limitations [employer] [facility] [employer] [facility] [employer](C annrupali_F HC_Team B) [facility] [employer] [facility] [employer](Can non_[facility]_T eam B) TELE CONSULT [id number] Notes Entered by: ALBA FELIX 02 Oct 2014 1040 ------- ------- ------- ------- -- Medicat ion ALBA WHITE 10/02 Advice Assessment th [facility] [employer] [facility]enna_F HC_Team B) th [facility](Phy sical Therapy [place]) OUTPATIENT [id number] Joint pain, localiz ed in the left keatonAYDEN Foster 10/10 Released w/o Limitations [employer] [facility] [employer] [facility](P [facility]ysical Therapy [place]) [facility] [place]) OUTPATIENT [id number] GRIFFIN ARELLANO 11/08 Released w/o Limitations [facility] [employer] [facility] [employer] [facility] [employer](P [facility]ysical Therapy [place]) [facility] [employer] [facility] [employer](Phy [facility]ical Therapy [place]) OUTPATIENT [id number] GRIFFIN ARELLANO 11/09 Released w/o Limitations [facility] [employer] [facility] [employer] [facility] [employer](P hysical Therapy [place]) [facility] [employer] [facility] [employer](Phy sical Therapy [place]) OUTPATIENT [id number] GRIFFIN ARELLANO 11/14 Released w/o Limitations [facility] [employer] [facility](P hysical Therapy [place]) [facility] [employer] [facility] [employer](Can non_C_T eam B) OUTPATIENT [id number] CC HEADACH E/SORE THROAT SRI MELO 11/16 Sick at Home/Quarter s th [employer] [facility] [employer] [facility] [employer](C jenna_F HC_Team B) [facility](Phy sical Therapy [place]) OUTPATIENT [id number] GRIFFIN ARELLANO 11/20 Released w/o Limitations [facility] [employer] [facility] [employer](P hysical Therapy [place]ra) 27[facility] [employer] [facility] [employer](Phy sical Therapy [place]) OUTPATIENT [id number] GRIFFIN ARELLANO 11/22 Released w/o Limitations [facility] [employer] [facility](P hysical Therapy [place]) [facility](Phy [facility]ical Therapy [place]) OUTPATIENT [id number] LIZZIE LOPEZ 11/24 Released w/o Limitations th [facility] [employer] [facility](P [facility]ysical Therapy [place]) [facility] [employer](Can non_[facility]_T eam B) TELE CONSULT [id number] Notes Entered by: DAMARI LEVINE 27 Nov 2014 0742 ------- ------- ------- ------- -- SEEN IN ER [facility] MARIAJOSE Oct BLANCO ARANA 11/27 [facility] [employer] [employer] [facility] [employer](C jenna_F HC_Team B) [facility](Phy sical Therapy [place]) OUTPATIENT [id number] GRIFFIN ARELLANOUEL 11/28 Released w/o Limitations th [facility] [employer] [facility](Se hysical Therapy [place]) th [facility](Can non_[facility]_T eam B) TELE CONSULT [id number] Notes Entered by: RAÚL CLINE 30 Nov 2014 1112 ------- ------- ------- ------- -- NETWORK RESULT- ER-11/17 15 LIZZIE BLAIR 11/30th [facility] [employer] [facility] [employer](C annon_F HC_Team B) th [facility](Can non_[facility]_T eam B) OUTPATIENT [id number] ALBA Hankins 12/01 Released w/o Limitations th [facility] [employer] [facility] [employer](C annon_F HC_Team B) th [facility](Can non_FHC_T eam B) OUTPATIENT [id number] CC FEVER/B ACK PAIN/NA ANYA SCOTT 12/19 Released w/o Limitations [facility] [employer] [facility] [employer](C annon_F HC_Team B) th [facility](Can non_FHC_T eam B) TELE CONSULT [id number] Notes Entered by: LE KAMARA 20 Dec 2014 0756 ------- ------- ------- ------- -- Quarter s BLANCO ARANA 12/20th [employer] [employer] [facility] [employer](C annon_F HC_Team B) th [facility] [employer] [facility](Can non_[facility]HC_T eam B) OUTPATIENT [id number] PCM directe d f/u post ER visit/v iral ANYA Arango 12/21 Sick at Home/Quarter s [employer] [facility] [employer](C annon_F HC_Team B) th [facility] [employer] [facility] [employer](Can non_FHC_T eam B) TELE CONSULT [id number] Notes Entered by: NAT GARDUNO 11 Jan 2015 1300 ------- ------- ------- ------- -- [facility] LIZZIE BLAIR 01/11th [employer] [employer] [facility] [employer](C annon_F HC_Team B) th [facility] [employer](Can non_FHC_T eam B) TELE CONSULT [id number] Notes Entered by: YAJAIRA EATON 01 Mar 2015 1724 ------- ------- ------- ------- -- [id number] [facility] ER Log BLANCO ARANA 03/01th [employer] [employer] [facility] [employer](C annon_F HC_Team B) th [facility] [employer] [facility] [employer](Can non_FHC_T eam B) TELE CONSULT [id number] Notes Entered by: NAT GARDUNO 05 Mar 2015 1144 ------- ------- ------- ------- -- [facility]ULT- [facility]0 12/20/19 15 LIZZIE BLAIR 03/05th [facility] [employer] [facility] [employer](C annon_F HC_Team B) th [facility](Can non_C_T eam B) TELE CONSULT [id number] Notes Entered by: ALISHA HUNT 07 Mar 2015 1025 ------- ------- ------- ------- -- Network Result - ER Summary 28 Feb 2015 LIZZIE BLAIR 03/07th [facility] [employer] [facility] [employer](C annon_F HC_Team B) th [employer]([facility] t) OUTPATIENT [id number] Notes Entered by: ZIA GOLDSTEIN 19 Mar 2015 1131 ------- ------- ------- ------- -- JUAN#5 MATT JIMENEZ 03/19 Released w/o Limitations th [employer] [facility] [employer]([facility]) th [employer] [facility] [employer](Can non_FHC_T eam B) OUTPATIENT [id number] sore throat, ear pain getting worse LIZZIE BLAIR Jer 03/20 Released w/o Limitations [employer] [employer] [facility] [employer](C annon_F HC_Team B) [facility](Can non_FHC_T eam B) TELE CONSULT [id number] Notes Entered by: ALBA FELIX 04 May 2015 0734 ------- ------- ------- ------- -- Medicat ion ALBA Moore 05/04 Released w/o Limitations [employer] [facility] [employer] [facility] [employer]([facility] annon_F HC_Team B) th [employer]([facility] [employer]) OUTPATIENT [id number] Notes Entered by: GENE MONTGOMERY 04 May 2015 1012 ------- ------- ------- ------- -- JUAN C GODINEZ 05/04 Released w/o Limitations [employer] [employer] [facility] [employer](P [facility] [employer] ) th [facility] [employer] [facility] [employer](Can non_FHC_T eam B) OUTPATIENT [id number] CC EAR DRAINAG E AND SORE THROAT ANYA LEMUS 06/18 Released w/o Limitations th [employer] [employer] [facility] [employer](C annon_F HC_Team B) th [facility] [employer] [facility] [employer](Pha rm D) OUTPATIENT [id number] Notes Entered by: JUAN CARLOS VICTORIA 11 Sep 2015 1001 ------- ------- ------- ------- -- JUAN CARLOS Sarkar 09/11 Released w/o Limitations th [facility] [employer] [facility] [employer](P harm D) th [facility](Can non_FHC_T eam B) TELE CONSULT [id number] Notes Entered by: CHUCK MCRAE 16 Oct 2015 1326 ------- ------- ------- ------- -- MEDICAT BLANCO AIRAS 10/16th [employer] [facility] [employer] [facility] [employer](C annon_F HC_Team B) th [facility](Can non_FHC_T eam B) OUTPATIENT [id number] cc LIZZIE Varela 10/30 Released w/o Limitations th [facility] [employer] [facility] [employer](C annon_F HC_Team B) th [facility](Can non_FHC_T eam B) TELE CONSULT [id number] Notes Entered by: LION PETERSON 02 Nov 2015 1529 ------- ------- ------- ------- -- Advisem ent on yvette hebert, out of medicat BLAKE Rose 11/02 [facility] [employer] [facility] annon_F HC_Team B) th [facility](Can non_FHC_T eam B) OUTPATIENT [id number] LIZZIE Trevizo 11/19 Released w/o Limitations [facility] [employer] [facility] [employer](C annon_F HC_Team B) th [facility](Can non_FHC_T eam B) TELE CONSULT [id number] Notes Entered by: MALINDA CARLOS 17 Dec 2015 1207 ------- ------- ------- ------- -- NETWORK RESULTS -ER- LIZZIE BLAIR 12/16 [facility] annon_F HC_Team B) th [facility] [employer](Can non_FHC_T eam B) OUTPATIENT [id number] f/u labs and meds LIZZIE BLAIR 12/17 Released w/o Limitations th [facility] [employer] [facility] [employer](C annon_F HC_Team B) [facility] [place]) OUTPATIENT [id number] Notes Entered by: JUAN ALMODOVAR 21 Dec 2015 1405 ------- ------- ------- ------- -- crs work up JASPER BIANCHI 12/20 Released w/o Limitations [facility] [employer] [facility](O ptometr y [facility] [place]) [facility] [employer] [facility] [employer](Can non_FHC_T eam B) OUTPATIENT [id number] poss broken rib SRI MELO 12/25 Released with Work/Duty Limitations 27[facility] [employer] [facility] [employer](C annon_F HC_Team B) [facility](Can non_FHC_T eam B) TELE CONSULT [id number] Notes Entered by: Irving BENITEZ 10 Jan 2016 1022 ------- ------- ------- ------- -- Neck pain increas ingly getting worse AKUA BENITEZ 01/09th [facility] [employer] [facility](C annon_F HC_Team B) [facility] [employer](Can non_FHC_T eam B) OUTPATIENT [id number] madiha michael alejandra KARLA Gomez 01/16 Released w/o Limitations th [facility] [employer] [facility](C annon_F HC_Team B) [facility] [employer](Can non_FHC_T eam B) TELE CONSULT [id number] Notes Entered by: CHUCK MCRAE 29 Jan 2016 1411 ------- ------- ------- ------- -- NECK PAIN BLAKE GANDARA 01/28 27th [facility] [employer] [facility] [employer](C annon_F HC_Team B) [facility] [employer](Can non_FHC_T eam B) TELE CONSULT [id number] Notes Entered by: MALINDA CARLOS 30 Jan 2016 1550 ------- ------- ------- ------- -- NETWORK RESULTS -ER-12/11 LIZZIE BLAIR 01/29th [facility] [employer] [facility] [employer](C annon_F HC_Team B) th [facility] [employer] [facility] [employer](Can non_FHC_T eam B) OUTPATIENT [id number] CC NECK PAIN WITH TINGLIN G AND NUMBNES S IN FINGERS SRI MELO 01/30 Released w/o Limitations [facility] [employer] [facility] [employer](C annon_F HC_Team B) th [facility](Can non_FHC_T eam B) TELE CONSULT [id number] Notes Entered by: YESSENIA HUNT 05 Mar 2016 1218 ------- ------- ------- ------- -- RESULTS - MRI 6 BLANCO ARANA 03/05 [facility] [employer] [facility](C annon_F HC_Team B) [facility](Can non_FHC_T eam B) TELE CONSULT [id number] Notes Entered by: CHUCK MCRAE 17 Mar 2016 1208 ------- ------- ------- ------- -- MRI RESULTS NECK BLANCO ARANA 03/17 [facility] [employer] [facility] [employer](C annon_F HC_Team B) [facility](Can non_FHC_T eam B) OUTPATIENT [id number] neck pain JOHN LOCKHART 03/18 Released w/o Limitations [employer] [facility] [employer] [facility] [employer](C annon_F HC_Team B) [employer](Ref ractive Surgery) OUTPATIENT [id number] ROBYN CARRILLO 04/28 Released w/o Limitations [employer](R efracti ve Surgery ) [employer](Ref ractive Surgery) OUTPATIENT [id number] JOSE CARLOS PAZ 04/29 Released w/o Limitations [employer](R efracti ve Surgery ) [employer](Ref ractive Surgery) OUTPATIENT [id number] Notes Entered by: MEE MARROQUIN 30 Apr 2016 0952 ------- ------- ------- ------- -- JOSE CARLOS PACHECO 04/30 Released w/o Limitations [employer](R efracti ve Surgery ) [employer](Ref ractive Surgery) OUTPATIENT [id number] 1 DAY P/O JOSE CARLOS KLEIN 05/01 Released w/o Limitations [employer](R efracti ve Surgery ) [employer](Ref ractive Surgery) OUTPATIENT [id number] 5 DAY P/O ROBYN MARROQUIN 05/05 Released w/o Limitations [employer](R efracti ve Surgery ) [facility] [place]) OUTPATIENT [id number] 1wk prk f/u..bn RAJINDER RIBEIRO P 05/08 Released w/o Limitations [facility](O ptometr y [facility] [place]) [facility] [place]) OUTPATIENT [id number] 1 mo Lasik f/u hg RAJINDER RIBEIRO P 06/03 Released w/o Limitations [facility](O ptometr y [facility] [place]) [facility] [employer](Can non_FHC_T eam B) TELE CONSULT [id number] Notes Entered by: PRICILA CRUZ Q 10 Jun 2016 1610 ------- ------- ------- ------- -- TONY Villalba 06/10th [facility] [employer] [facility] [employer](Yi grossmanF HC_Team B) [facility](Can non_FHC_T eam B) TELE CONSULT [id number] Notes Entered by: Brandon GANDARA 13 Jun 2016 1027 ------- ------- ------- ------- -- Resched ule Visit NICHOL BLAKE Ramos 06/13 [facility] [employer] [facility](C jenna_F HC_Team B) [facility](Can non_FHC_T eam B) OUTPATIENT [id number] R/S from 20Sep Neck Pain RASHEED ATKINS 06/23 Released w/o Limitations th [facility] [employer] [facility] [employer](C annrupali_F HC_Team B) [facility](Can non_FHC_T eam B) TELE CONSULT [id number] Notes Entered by: YESSENIA HUNT 27 Jun 2016 1459 ------- ------- ------- ------- -- APPT WITH WILBERT ON May UPDATE LION PETERSON 06/27 Referred for Appointment th [facility](C jenna_F HC_Team B) [facility](Phy sical Therapy [place]) OUTPATIENT [id number] neck pain YVESHILDA HERBERT Irving 07/17 Released w/o Limitations [facility] [employer] [facility](P hysical Therapy [place]) [facility](Phy sical Therapy [place]) OUTPATIENT [id number] RAÚL STEWART 07/22 Released w/o Limitations [facility](P hysical Therapy [place]) [facility](Phy sical Therapy [place]) OUTPATIENT [id number] LIZZIE LOPEZ 08/05 Released w/o Limitations [facility](P hysical Therapy [place]) [facility](Phy sical Therapy [place]) OUTPATIENT [id number] LIZZIE LOPEZ 08/07 Released w/o Limitations [facility](P hysical Therapy [place]) [facility](Phy sical Therapy [place]) OUTPATIENT [id number] RAÚL STEWART 08/13 Released w/o Limitations [facility](P hysical Therapy [place]) [facility](Phy sical Therapy [place]) OUTPATIENT [id number] HILDA LINDSEY 08/14 Released w/o Limitations th [facility](P hysical Therapy [place]) [facility] OUTPATIENT [id number] Notes Entered by: ANTHONY DE LEON 26 Aug 2016 1025 ------- ------- ------- ------- -- Phase I PHA RASHEED ATKINS 08/26 Released w/o Limitations th [facility]) th [facility](Can non_FHC_T eam B) TELE CONSULT [id number] Notes Entered by: GINGER DICKENS 02 Sep 2016 1042 ------- ------- ------- ------- -- Network Results - Pain Manage ent - 07/2016 RASHEED ATKINS [facility] 09/02th [facility](C jenna_F HC_Team B) [facility] [place]) OUTPATIENT [id number] late 3 month RIKKI f/u RAJINDER RIBEIRO 09/15 Released w/o Limitations th [facility](O ptometr y [facility] [place]) th [facility](Phy sical Therapy [place]) OUTPATIENT [id number] HILDA LINDSEY 09/16 Released w/o Limitations th [facility](P hysical Therapy [place]) [facility](Can non_FHC_T eam B) OUTPATIENT [id number] Notes Entered by: SHAUNA LIMA 03 Nov 2016 1422 ------- ------- ------- ------- -- Strep Idania In LION PETERSON 11/03 Released w/o Limitations [facility] [employer] [facility](C jenna_F HC_Team B) [facility] [employer] [facility] [employer](Opt ometry [facility]) OUTPATIENT [id number] 6 month RIKKI f/u RAJINDER RIBEIRO 12/12 Released w/o Limitations [facility](Can non_FHC_T eam B) OUTPATIENT [id number] CC SINUS INFECTI ON MARINZOLTANPAUL 12/22 Released w/o Limitations [facility](C annon_F HC_Team B) [facility](Can non_FHC_T eam B) TELE CONSULT [id number] Notes Entered by: MIREILLE BORRERO 22 Apr 2017 0924 ------- ------- ------- ------- -- HIGH BLOOD PRESSUR BLAKE TEJEDA 04/22 [facility](C annon_F HC_Team B) [facility](Can non_FHC_T eam B) TELE CONSULT [id number] Notes Entered by: MIREILLE BORRERO 23 Apr 2017 1108 ------- ------- ------- ------- -- LAB REQ - PLEASE ORDER TODAY RASHEED ATKINS 04/23 Special [facility](C annon_F HC_Team B) [facility](Can non_FHC_T eam B) OUTPATIENT [id number] CC RAÚL WOOD 06/29 Released w/o Limitations [facility](C annon_F HC_Team B) [facility](Can non_FHC_T eam B) OUTPATIENT [id number] CC LEFT EAR PAIN AND THROAT PAIN SRI MELO 07/09 Released w/o Limitations [facility](C annon_F HC_Team B) [facility](Can non_FHC_T eam B) OUTPATIENT [id number] CC LUMP ON HAND SRI MELO 09/01 Released w/o Limitations th [facility](C annon_F HC_Team B) th [facility](Can non_FHC_T eam B) OUTPATIENT [id number] f/u X ray results SRI MELO Rody 09/02 Released w/o Limitations [facility](C annon_F HC_Team B) th [facility](Dep loyment Health Assessmen t) OUTPATIENT [id number] VIRTUAL A [phone] OR [phone] ROBYN BATEMAN 09/15 Released w/o Limitations [facility](D eployme nt Health Assessm ent) th [facility]) OUTPATIENT [id number] Notes Entered by: TRAY NOVOA 15 Sep 2017 1426 ------- ------- ------- ------- -- Annual Tri Service PHA RASHEED ATKINS 09/15 Released w/o Limitations [facility]) th [facility](Can non_FHC_T eam B) OUTPATIENT [id number] Scrape and Freeze of lesion on L hand CONNOR MELOCA Rody 09/16 Released w/o Limitations [facility](C annon_F HC_Team B) th [facility](Can non_FHC_T eam B) TELE CONSULT [id number] Notes Entered by: MIREILLE BORRERO 06 Oct 2017 1154 ------- ------- ------- ------- -- ACUTE MED REACTIO N LION PETERSON 10/06 Released to [facility] th [facility](C annon_F HC_Team B) th [facility](QQQ [facility] Sandra) OUTPATIENT [id number] Notes Entered by: Nayeli NORRIS 11 Dec 2017 1110 ------- ------- ------- ------- -- cold symptom s GUY NORRIS S 12/11 Released w/o Limitations th [facility](Q QQ [facility] [place]) th [facility] [place]) OUTPATIENT [id number] Dry eyes HX ROBYN CHIN 12/31 Released w/o Limitations th [facility]) [facility](FBN A [place]) OUTPATIENT [id number] Notes Entered by: Jer NATHAN 03 Mar 2018 1626 ------- ------- ------- ------- -- Audiogr KAREN Chowdary 03/03 Released w/o Limitations [facility](F BNA [place]) th [facility](Can non_C_T eam B) TELE CONSULT [id number] Notes Entered by: HARRIET LIVE 04 Jun 2018 0813 ------- ------- ------- ------- -- ACUTE: NECK PAIN BLAKE GANDARA 06/04 Other Not Elsewhere Classified th [facility](C annon_F HC_Team B) th [facility](Can non_FHC_T eam B) OUTPATIENT [id number] CC SEVERE NECK PAIN RASHEED ATKINS 06/09 Released w/o Limitations th [facility](C annon_F HC_Team B) [facility](Can non_FHC_T eam B) TELE CONSULT [id number] Notes Entered by: ANA COELLO 14 Jun 2018 1345 ------- ------- ------- ------- -- POSSIBL E MED ADVERSE EFFECT BLANCO ARANA 06/14 Other Not Elsewhere Classified [facility](C annon_F HC_Team B) [facility](Can non_OpMed _Team A) TELE CONSULT [id number] Notes Entered by: SAMMY FORTUNE 18 Jun 2018 0855 ------- ------- ------- ------- -- Network result- ER NOTES-0 06/04/20 RASHEED NUGENT 06/18 [facility](C annon_O pMed_Te am A) [facility](Can non_FHC_T eam B) TELE CONSULT [id number] Notes Entered by: PRADEEP COCHRAN 30 Jun 2018 0907 ------- ------- ------- ------- -- Network results -MRI C-Spine -[id number] 18-Look in artifac ts and images RASHEED ATKINS [facility] 06/30 [facility](C annon_F HC_Team B) [facility](Can non_FHC_T eam B) TELE CONSULT [id number] 5 Notes Entered by: Jaiden MARIN 25 Aug 2018 0907 ------- ------- ------- ------- -- [facility] ER LOG - 27 [facility] R 2017 MAHSA CORDOVA 08/25 Released w/o Limitations [facility](C annon_F HC_Team B) th [facility](Can non_FHC_T eam B) OUTPATIENT [id number] ER follow up for Chest pain/st ates he needs a referra l to cardiol RASHEED Galdamez [facility] 09/02 Released w/o Limitations [facility](C annon_F HC_Team B) th [facility](Can non_OpMed _Team A) TELE CONSULT [id number] Notes Entered by: SAMMY FORTUNE 02 Sep 2018 1045 ------- ------- ------- ------- -- Network result- ER NOTES-1 10/24/19 18 LOOK IN ARTIFAC TS and IMAGES RASHEED ATKINS [facility] 09/02 [facility](C annon_O pMed_Te am A) th [facility](Can non_FHC_T eam B) TELE CONSULT [id number] 0 Notes Entered by: CARLENE BIANCHI 13 Sep 2018 0830 ------- ------- ------- ------- -- Con leave paperwo rk and needs 2 referra BUSTER GORDON 09/13 Referred for Appointment th [facility](C annon_F HC_Team B) th [facility](Can non_FHC_T eam B) TELE CONSULT [id number] 4 Notes Entered by: GINGER DICKENS 14 Sep 2018 1259 ------- ------- ------- ------- -- NETWORK RESULTS - SURGERY HOSP NOTE - [id number] - LOOK IN ARTIFAC TS and IMAGES RASHEED ATKINS [facility] 09/14 [facility](C annon_F HC_Team B) th [facility](Can non_FHC_T eam B) TELE CONSULT [id number] 4 Notes Entered by: GINGER DICKENS 14 Sep 2018 1303 ------- ------- ------- ------- -- NETWORK RESULTS - OP NOTE and CONSULT NOTE - [id number] - LOOK IN ARTIFAC TS and IMAGES RASHEED ATKINS [facility] 09/14 [facility](C annon_F HC_Team B) [facility](Can non_FHC_T eam B) TELE CONSULT [id number] 4 Notes Entered by: GINGER DICKENS 14 Sep 2018 1305 ------- ------- ------- ------- -- NETWORK RESULTS - OP NOTE and CONSULT NOTE - [id number] - LOOK IN ARTIFAC TS and IMAGES RASHEED ATKINS [facility] 09/14th [facility](C annon_F HC_Team B) th [facility](Can non_FHC_T eam B) TELE CONSULT [id number] 3 Notes Entered by: GINGER DICKENS 14 Sep 2018 1308 ------- ------- ------- ------- -- NETWORK RESULTS - [facility] - [id number] - LOOK IN ARTIFAC TS and IMAGES BJORN EMERSON 09/14 [facility](C annon_F HC_Team B) th [facility](Can non_FHC_T eam B) TELE CONSULT [id number] 6 Notes Entered by: Jaiden MARIN 23 Sep 2018 0948 ------- ------- ------- ------- -- [facility] ER LOG - [address] [place] [address] BLANCO ARANA 09/23 Other Not Elsewhere Classified th [facility](C annon_F HC_Team B) th [facility](IVANIA Nataliia Sandra) OUTPATIENT [id number] CC AUDIOGR AM KAREN NATHAN 10/10 Released w/o Limitations th [facility](Luz Elena Sandra) th [facility](Can non_FHC_T eam B) TELE CONSULT [id number] 9 Notes Entered by: SHARON MARQUEZ 11 Oct 2018 1101 ------- ------- ------- ------- -- Network results -MRI C Spine-1 [id number] -Look in Artifac ts and Images RASHEED ATKINS 10/11th [facility](C annon_F HC_Team B) [facility](Can non_FHC_T eam B) OUTPATIENT [id number] 1 [facility] [phone] OR [phone] BJORN EMERSON 10/13 Released w/o Limitations [facility](C annon_F HC_Team B) th [facility](Can non_FHC_T eam B) OUTPATIENT [id number] SEPARAT ION EXAM WILBERT RASHEED SANCHEZ 10/19 Released w/o Limitations th [facility](C annon_F HC_Team B) th [facility](Can non_FHC_T eam B) TELE CONSULT [id number] 4 Notes Entered by: SHARON MARQUEZ 25 Oct 2018 1445 ------- ------- ------- ------- -- Network results -MRI C Spine-1 [id number] -Look in Artifac ts and Images RASHEED ATKINS 10/25 [facility](C annon_F HC_Team B) th [facility](Can non_OpMed _Team A) OUTPATIENT [id number] CC PAINFUL WART TO LEFT FOOT AND TENDER LUMP TO CHEST DENNYS TAPIA 11/17 Released w/o Limitations [facility](C annon_O pMed_Te am A) [facility](Can non_FHC_T eam B) TELE CONSULT [id number] 0 Notes Entered by: SHARON MARQUEZ 18 Nov 2018 1256 ------- ------- ------- ------- -- Network results -Stress Test-[id number]- Artifac ts and Images AMANDA GLASER 11/18 [facility](C annon_F HC_Team B) [facility](Can non_FHC_T eam B) TELE CONSULT [id number] 3 Notes Entered by: SHARON MARQUEZ 22 Nov 2018 0854 ------- ------- ------- ------- -- Network results -Echoca rdiogra m-[id number]-Art ifacts and Images AMANDA GLASER 11/22 [facility](C annon_F HC_Team B) [facility]) TELE CONSULT [id number] 0 Notes Entered by: MERCEDES ROSALES 29 Nov 2018 1258 ------- ------- ------- ------- -- ELIJAH Bojorquez 11/29 Other Not Elsewhere Classified [facility]) [facility](Can non_OpMed _Team A) OUTPATIENT [id number] CC AMANDA TANNER 12/02 Released w/o Limitations [facility](C annon_O pMed_Te am A) [facility]) OUTPATIENT [id number] Notes Entered by: TRAY NOVOA 02 Dec 2018 1028 ------- ------- ------- ------- -- Annual [facility] Service [facility] GADIEL ANNA 12/02 Released w/o Limitations [facility]) [facility](Can non_OpMed _Team A) TELE CONSULT [id number] Notes Entered by: ANA COELLO 09 May 2019 0834 ------- ------- ------- ------- -- RX MAHSA CHRISTIE 05/09 Referred for Appointment [facility](C annon_O pMed_Te am A) [facility] Outpatient Encounter [id number] 07/16 [facility] Outpatient Encounter [id number] 12/01 [facility] 8344R-439 AMDS Outpatient [id number] NOREEN ZAMORA 01/01 Discharge Disposition: Home or Self Care 8344R-4 39 AMDS [facility] [place] [facility] Outpatient Encounter [id number] 06/24 [facility] 8344R-439 AMDS Between Visit [id number] 10/11 Discharge Disposition: Home or Self Care 8344R-4 39 AMDS 8344R-439 AMDS Between Visit [id number] 10/29 Discharge Disposition: Home or Self Care 8344R-4 39 AMDS Procedures Combined list of: 1) Procedures [facility], not all [place] non-surgical procedures are included; 2) All procedures from the 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 Procedure Procedure Type Code Date Perfomer Comments Sourc e No data available for this section [facility] PSYCHIATRIC DIAGNOSTIC INTERVIEW EXAMINATION 2008 [facility] POSTOPERATIVE FOLLOW-UP VISIT, NORMALLY INCLUDED IN THE SURGICAL PACKAGE, INDICATE THAT EVALUATION & MANAGEMENT SERVICE WAS PERFORMED DURING A POSTOPERATIVE PERIOD REASON RELATED ORIGINAL PROCEDURE 2015 [facility] POSTOPERATIVE FOLLOW-UP VISIT, NORMALLY INCLUDED IN THE SURGICAL PACKAGE, INDICATE THAT EVALUATION & MANAGEMENT SERVICE WAS PERFORMED DURING A POSTOPERATIVE PERIOD REASON RELATED ORIGINAL PROCEDURE 2015 [facility] LASER IN SITU KERATOMILEUSIS (LASIK) 2015 [facility] OPHTHALMOLOGICAL SERVICES: MEDICAL EXAMINATION AND EVALUATION WITH INITIATION OF DIAGNOSTIC AND TREATMENT PROGRAM; INTERMEDIATE, NEW PATIENT 2015 [facility] OPHTHALMIC ULTRASOUND, ECHOGRAPHY, DIAGNOSTIC; CORNEAL PACHYMETRY, UNILATERAL OR BILATERAL (DETERMINATION OF CORNEAL THICKNESS) 2015 [facility] SCREENING TEST OF VISUAL ACUITY, QUANTITATIVE, BILATERAL 2008 [facility] NONINVASIVE EAR OR PULSE OXIMETRY FOR OXYGEN SATURATION; SINGLE DETERMINATION 2010 [facility] FITTING OF SPECTACLES, EXCEPT FOR APHAKIA; MONOFOCAL 2009 [facility] ADMINISTRATION OF PATIENT-FOCUSED HEALTH RISK ASSESSMENT INSTRUMENT (EG, HEALTH HAZARD APPRAISAL) WITH SCORING AND DOCUMENTATION, PER STANDARDIZED INSTRUMENT 2018 DoD ONLINE ASSESS &MANAG SERV PROVIDE,A QUAL NONPHYS HCP TO AN ESTABLISHED PAT/GUARDIAN,NOT ORIGINAT [facility] RELAT ASSESS &MANAG SERV PROVIDE W/IN THE PREV 7 DAYS,USE THE [employer] NETWORK 2018 DoD DESTRUCTION (EG, LASER SURGERY, ELECTROSURGERY, CRYOSURGERY, CHEMOSURGERY, SURGICAL CURETTEMENT), OF BENIGN LESIONS OTHER THAN SKIN TAGS OR CUTANEOUS VASCULAR PROLIFERATIVE LESIONS; UP TO 14 LESIONS 2018 DoD PURE TONE AUDIOMETRY (THRESHOLD), AUTOMATED; AIR ONLY 2018 DoD ONLINE ASSESS &MANAG SERV PROVIDE,A QUAL NONPHYS HCP TO AN ESTABLISHED PAT/GUARDIAN,NOT ORIGINAT [facility] RELAT ASSESS &MANAG SERV PROVIDE W/IN THE PREV 7 DAYS,USE THE [employer] NETWORK 2017 DoD TELE ASSESS & MGT SRV PROV QUAL NONPHYS HLTH CARE PRO TO EST PAT,PARENT,GUARD NOT ORIG REL ASSESS & MGT SRV PROV W/IN PREV 7 DAYS NOR LEAD ASSESS & MGT SRV/PX W/IN NXT 24 HR/SOON APT;5-10 MIN MED DIS 2017 DoD TELE ASSESS & MGT SRV PROV QUAL NONPHYS HLTH CARE PRO TO EST PAT,PARENT,GUARD NOT ORIG REL ASSESS & MGT SRV PROV W/IN PREV 7 DAYS NOR LEAD ASSESS & MGT SRV/PX W/IN NXT 24 HR/SOON APT;5-10 MIN MED DIS 2017 DoD PURE TONE AUDIOMETRY (THRESHOLD), AUTOMATED; AIR ONLY 2017 DoD DESTRUCTION (EG, LASER SURGERY, ELECTROSURGERY, CRYOSURGERY, CHEMOSURGERY, SURGICAL CURETTEMENT), OF BENIGN LESIONS OTHER THAN SKIN TAGS OR CUTANEOUS VASCULAR PROLIFERATIVE LESIONS; UP TO 14 LESIONS 2016 DoD ADMINISTRATION OF PATIENT-FOCUSED HEALTH RISK ASSESSMENT INSTRUMENT (EG, HEALTH HAZARD APPRAISAL) WITH SCORING AND DOCUMENTATION, PER STANDARDIZED INSTRUMENT 2016 DoD BRIEF EMOTIONAL/BEHAVIOR AL ASSESSMENT (EG, DEPRESSION INVENTORY, ATTENTION-DEFICIT/ HYPERACTIVITY DISORDER [ADHD] SCALE), WITH SCORING AND DOCUMENTATION, PER STANDARDIZED INSTRUMENT 2016 DoD ONLINE ASSESS &MANAG SERV PROVIDE,A QUAL NONPHYS HCP TO AN ESTABLISHED PAT/GUARDIAN,NOT ORIGINAT [facility] RELAT ASSESS &MANAG SERV PROVIDE W/IN THE PREV 7 DAYS,USE THE [email or web address] COMM NETWORK 2016 DoD TELE ASSESS & MGT SRV PROV QUAL NONPHYS HLTH CARE PRO TO EST PAT,PARENT,GUARD NOT ORIG REL ASSESS & MGT SRV PROV W/IN PREV 7 DAYS NOR LEAD ASSESS & MGT SRV/PX W/IN NXT 24 HR/SOON APT;5-10 MIN MED DIS 2016 DoD DETERMINATION OF REFRACTIVE STATE 2016 [facility] PHYSICAL THERAPY RE-EVALUATION 2015 [facility] DETERMINATION OF REFRACTIVE STATE 2015 [facility] PHYSICAL THERAPY RE-EVALUATION 2015 [facility] APPLICATION OF A MODALITY TO 1 OR MORE AREAS; HOT OR COLD PACKS 2015 DoD APPLICATION OF A MODALITY TO 1 OR MORE AREAS; HOT OR COLD PACKS 2015 DoD THERAPEUTIC PROCEDURE, 1 OR MORE AREAS, EACH 15 MINUTES; THERAPEUTIC EXERCISES TO DEVELOP STRENGTH AND ENDURANCE, RANGE OF MOTION AND FLEXIBILITY 2015 DoD APPLICATION OF A MODALITY TO 1 OR MORE AREAS; ELECTRICAL STIMULATION (UNATTENDED) 2015 DoD THERAPEUTIC PROCEDURE, 1 OR MORE AREAS, EACH 15 MINUTES; THERAPEUTIC EXERCISES TO DEVELOP STRENGTH AND ENDURANCE, RANGE OF MOTION AND FLEXIBILITY 2015 DoD TELE ASSESS & MGT SRV PROV QUAL NONPHYS HLTH CARE PRO TO EST PAT,PARENT,GUARD NOT ORIG REL ASSESS & MGT SRV PROV W/IN PREV 7 DAYS NOR LEAD ASSESS & MGT SRV/PX W/IN NXT 24 HR/SOON APT;5-10 MIN MED DIS 2015 DoD POSTOPERATIVE FOLLOW-UP VISIT, NORMALLY INCLUDED IN THE SURGICAL PACKAGE, INDICATE THAT EVALUATION & MANAGEMENT SERVICE WAS PERFORMED DURING A POSTOPERATIVE PERIOD REASON RELATED ORIGINAL PROCEDURE 2015 [facility] LASER IN SITU KERATOMILEUSIS (LASIK) 2015 DoD TELE ASSESS & MGT SRV PROV QUAL NONPHYS HLTH CARE PRO TO EST PAT,PARENT,GUARD NOT ORIG REL ASSESS & MGT SRV PROV W/IN PREV 7 DAYS NOR LEAD ASSESS & MGT SRV/PX W/IN NXT 24 HR/SOON APT;5-10 MIN MED DIS 2015 DoD TELE ASSESS & MGT SRV PROV QUAL NONPHYS HLTH CARE PRO TO EST PAT,PARENT,GUARD NOT ORIG REL ASSESS & MGT SRV PROV W/IN PREV 7 DAYS NOR LEAD ASSESS & MGT SRV/PX W/IN NXT 24H/SOON APT; 11-20 MIN MED DIS 2015 DoD TELE ASSESS & MGT SRV PROV QUAL NONPHYS HLTH CARE PRO TO EST PAT,PARENT,GUARD NOT ORIG REL ASSESS & MGT SRV PROV W/IN PREV 7 DAYS NOR LEAD ASSESS & MGT SRV/PX W/IN NXT 24 HR/SOON APT;5-10 MIN MED DIS 2015 DoD OPHTHALMIC ULTRASOUND, ECHOGRAPHY, DIAGNOSTIC; CORNEAL PACHYMETRY, UNILATERAL OR BILATERAL (DETERMINATION OF CORNEAL THICKNESS) 2015 DoD PREPARATION OF REPORT OF PATIENT'S PSYCHIATRIC STATUS, HISTORY, TREATMENT, OR PROGRESS (OTHER THAN FOR LEGAL OR CONSULTATIVE PURPOSES) FOR OTHER INDIVIDUALS, AGENCIES, OR INSURANCE CARRIERS 2015 DoD TELE ASSESS & MGT SRV PROV QUAL NONPHYS HLTH CARE PRO TO EST PAT,PARENT,GUARD NOT ORIG REL ASSESS & MGT SRV PROV W/IN PREV 7 DAYS NOR LEAD ASSESS & MGT SRV/PX W/IN NXT 24H/SOON APT; 21-30 MIN MED DIS 2015 DoD THERAPEUTIC, PROPHYLACTIC, OR DIAGNOSTIC INJECTION (SPECIFY SUBSTANCE OR DRUG); SUBCUTANEOUS OR INTRAMUSCULAR 2015 DoD TELE ASSESS & MGT SRV PROV QUAL NONPHYS HLTH CARE PRO TO EST PAT,PARENT,GUARD NOT ORIG REL ASSESS & MGT SRV PROV W/IN PREV 7 DAYS NOR LEAD ASSESS & MGT SRV/PX W/IN NXT 24 HR/SOON APT;5-10 MIN MED DIS 2015 DoD PSYCHOTHERAPY, 60 MINUTES WITH PATIENT 2014 DoD PSYCHOTHERAPY, 60 MINUTES WITH PATIENT 2014 DoD PSYCHOTHERAPY, 60 MINUTES WITH PATIENT 2014 DoD PSYCHIATRIC DIAGNOSTIC EVALUATION 2014 DoD APPLICATION OF A MODALITY TO 1 OR MORE AREAS; ULTRASOUND, EACH 15 MINUTES 2014 DoD TELE ASSESS & MGT SRV PROV QUAL NONPHYS HLTH CARE PRO TO EST PAT,PARENT,GUARD NOT ORIG REL ASSESS & MGT SRV PROV W/IN PREV 7 DAYS NOR LEAD ASSESS & MGT SRV/PX W/IN NXT 24 HR/SOON APT;5-10 MIN MED DIS 2014 DoD APPLICATION OF A MODALITY TO 1 OR MORE AREAS; ULTRASOUND, EACH 15 MINUTES 2014 DoD APPLICATION OF A MODALITY TO 1 OR MORE AREAS; ULTRASOUND, EACH 15 MINUTES 2014 DoD APPLICATION OF A MODALITY TO 1 OR MORE AREAS; ULTRASOUND, EACH 15 MINUTES 2014 DoD APPLICATION OF A MODALITY TO 1 OR MORE AREAS; IONTOPHORESIS, EACH 15 MINUTES 2014 DoD APPLICATION OF A MODALITY TO 1 OR MORE AREAS; IONTOPHORESIS, EACH 15 MINUTES 2014 DoD THERAPEUTIC PROCEDURE, 1 OR MORE AREAS, EACH 15 MINUTES; THERAPEUTIC EXERCISES TO DEVELOP STRENGTH AND ENDURANCE, RANGE OF MOTION AND FLEXIBILITY 2014 DoD FITTING OF SPECTACLES, EXCEPT FOR APHAKIA; MONOFOCAL 2013 DoD TELE ASSESS & MGT SRV PROV QUAL NONPHYS HLTH CARE PRO TO EST PAT,PARENT,GUARD NOT ORIG REL ASSESS & MGT SRV PROV W/IN PREV 7 DAYS NOR LEAD ASSESS & MGT SRV/PX W/IN NXT 24H/SOON APT; 11-20 MIN MED DIS 2013 DoD TELE ASSESS & MGT SRV PROV QUAL NONPHYS HLTH CARE PRO TO EST PAT,PARENT,GUARD NOT ORIG REL ASSESS & MGT SRV PROV W/IN PREV 7 DAYS NOR LEAD ASSESS & MGT SRV/PX W/IN NXT 24 HR/SOON APT;5-10 MIN MED DIS 2013 DoD PHYSICAL THERAPY RE-EVALUATION 2013 DoD THERAPEUTIC PROCEDURE,1 OR MORE AREAS,EACH 15 MINUTES;NEUROMUSCU LAR REEDUCATION OF MOVEMENT,BALANCE,C OORDINATION,KINEST HETIC SENSE,POSTURE,AND/ OR PROPRIOCEPTION FOR SITTING AND/OR STANDING ACTIVITIES 2013 DoD THERAPEUTIC PROCEDURE, 1 OR MORE AREAS, EACH 15 MINUTES; THERAPEUTIC EXERCISES TO DEVELOP STRENGTH AND ENDURANCE, RANGE OF MOTION AND FLEXIBILITY 2013 DoD REMOVAL OF FOREIGN BODY, EXTERNAL EYE; CONJUNCTIVAL SUPERFICIAL 2012 DoD TELE ASSESS & MGT SRV PROV QUAL NONPHYS HLTH CARE PRO TO EST PAT,PARENT,GUARD NOT ORIG REL ASSESS & MGT SRV PROV W/IN PREV 7 DAYS NOR LEAD ASSESS & MGT SRV/PX W/IN NXT 24 HR/SOON APT;5-10 MIN MED DIS 2012 DoD FITTING OF SPECTACLES, EXCEPT FOR APHAKIA; MONOFOCAL 2012 DoD TELE ASSESS & MGT SRV PROV QUAL NONPHYS HLTH CARE PRO TO EST PAT,PARENT,GUARD NOT ORIG REL ASSESS & MGT SRV PROV W/IN PREV 7 DAYS NOR LEAD ASSESS & MGT SRV/PX W/IN NXT 24 HR/SOON APT;5-10 MIN MED DIS 2012 DoD TELE ASSESS & MGT SRV PROV QUAL NONPHYS HLTH CARE PRO TO EST PAT,PARENT,GUARD NOT ORIG REL ASSESS & MGT SRV PROV W/IN PREV 7 DAYS NOR LEAD ASSESS & MGT SRV/PX W/IN NXT 24 HR/SOON APT;5-10 MIN MED DIS 2012 [facility] OPHTHALMOLOGICAL SERVICES: MEDICAL EXAMINATION AND EVALUATION, WITH INITIATION OR CONTINUATION OF DIAGNOSTIC AND TREATMENT PROGRAM; INTERMEDIATE, ESTABLISHED PATIENT 2012 [facility] Determination Of Refractive State Determination Of Refractive State [id number] 2012 JASPER BIANCHI [facility] Ophthalmological Prior Patient Start Comprehensive Care Ophthalmological Prior Patient Start Comprehensive Care [id number] 2012 JASPER BIANCHI [facility] Non-Physician Phone Call To Patient/Provider Brief (5-10min) Non-Physician Phone Call To Patient/Provider Brief (5-10min) [id number] 2012 BLANCO ARANA [facility] Non-Physician Phone Call To Patient/Provider Brief (5-10min) Non-Physician Phone Call To Patient/Provider Brief (5-10min) [id number] 2012 REGINA LACKEY [facility] Ophthalmological Prior Patient Start Intermediate Level Care Ophthalmological Prior Patient Start Intermediate Level Care 64121 2012 DU PEREZ [facility] Pulse Oximetry Pulse Oximetry 64296 2010 ANAND LOPEZS [facility] Spectacles Services Fitting Monofocal Except For Aphakia Spectacles Services Fitting Monofocal Except For Aphakia 54408 2009 RAÚL GUEVARA [facility] Determination Of Refractive State Determination Of Refractive State 03524 2009 RAÚL GUEVARA [facility] Ophthalmological New Patient Start Comprehensive Care Ophthalmological New Patient Start Comprehensive Care 61665 2009 RAÚL GUEVARA [facility] Dental Procedure Tooth Extraction Durant Tooth 2009 AURE SUTTON Durant Tooth Extraction X 4-2006 [facility] Psychiatric Diagnostic Evaluation Comprehensive Examination Psychiatric Diagnostic Evaluation Comprehensive Examination 47150 2008 KEVIN KESSLER [facility] Preventive Medicine Administration Of Health Risk Questionnaire Patient-Focused Preventive Medicine Administration Of Health Risk Questionnaire Patient-Focused 29174 2018 GADIEL ANNA [facility] Internet Med Svc Qual Nonphys Healthcare Prof Up To 7 Days Estab Patient Internet Med Svc Qual Nonphys Healthcare Prof Up To 7 Days Estab Patient 99826 2018 ELIJAH ENAMORADO [facility] Destruction Of Flat Warts By Cryosurgery Up To 14 Lesions Destruction Of Flat Warts By Cryosurgery Up To 14 Lesions 34206 2018 DENNYS HUI [facility] Threshold Audiogram (Pure Tone) Automated Threshold Audiogram (Pure Tone) Automated 0208T 2018 KAREN NATHAN [facility] Internet Med Svc Qual Nonphys Healthcare Prof Up To 7 Days Estab Patient Internet Med Svc Qual Nonphys Healthcare Prof Up To 7 Days Estab Patient 02315 2017 RASHEED ATKINS [facility] Non-Physician Phone Call To Patient/Provider Brief (5-10min) Non-Physician Phone Call To Patient/Provider Brief (5-10min) 63355 2017 BLANCO ARANA [facility] Non-Physician Phone Call To Patient/Provider Brief (5-10min) Non-Physician Phone Call To Patient/Provider Brief (5-10min) [id number] 2017 BLAKE GANDARA [facility] Threshold Audiogram (Pure Tone) Automated Threshold Audiogram (Pure Tone) Automated 0208T 2017 KAREN NATHAN Medication Management By Pharmacist Initial 15 Minutes New Patient Medication Management By Pharmacist Initial 15 Minutes New Patient 81803 2017 GUY NORRIS [facility] Destruction Of Benign Lesion By Cryosurgery Destruction Of Benign Lesion By Cryosurgery 60528 2016 SRI MELO CRYOTHERAPY The Lesion was treated with light cryotherapy using cryocautery. The nozzle of the spray gun was positioned 1.0 to 1.5 cm above the skin surface and aimed at the center of the Target Lesion. Liquid Nitrogen is subsequently applied until an ice field encompasses the lesion and the desired margin (2-3 mm) Freeze thaw freeze technique was performed with complete thawing of 2-3 minutes between cycles. Local care discussed. Side effects of treatment and precautions discussed. All questions answered. To follow up if worse or any new problems. [facility] Preventive Medicine Administration Of Health Risk Questionnaire Patient-Focused Preventive Medicine Administration Of Health Risk Questionnaire Patient-Focused [id number] 2016 TRAY NOVOA [facility] Psychometric Emotional / Behavioral A e ment Psychometric Emotional / Behavioral Assessment 44032 2016 BHAVANA ROBYN Jaiden Skye Internet Med Svc Qual Nonphys Healthcare Prof Up To 7 Days Estab Patient Internet Med Svc Qual Nonphys Healthcare Prof Up To 7 Days Estab Patient [id number] 2016 ROBYN BATEMAN Skye Internet Med Svc Qual Nonphys Healthcare Prof Up To 7 Days Estab Patient Internet Med Svc Qual Nonphys Healthcare Prof Up To 7 Days Estab Patient [id number] 2016 SRI MELO Non-Physician Phone Call To Patient/Provider Brief (5-10min) Non-Physician Phone Call To Patient/Provider Brief (5-10min) [id number] 2016 BLAKE GANDARA Determination Of Refractive State Determination Of Refractive State 54318 2016 RAJINDER RIBEIRO Ophthalmological Prior Patient Start Intermediate Level Care Ophthalmological Prior Patient Start Intermediate Level Care [id number] 2016 RAJINDER RIBEIRO Physical Therapy Service Re-Evaluation Physical Therapy Service Re-Evaluation 68293 2015 HILDA LINDSEY Determination Of Refractive State Determination Of Refractive State 98736 2015 RAJINDER RIBEIRO Ophthalmological Prior Patient Start Intermediate Level Care Ophthalmological Prior Patient Start Intermediate Level Care 85502 2015 RAJINDER RIBEIRO Physical Therapy Service Re-Evaluation Physical Therapy Service Re-Evaluation 12271 2015 HILDA LINDSEY Modalities Heat Hot Packs Modalities Heat Hot Packs 70908 2015 RAÚL STEWART Modalities Electrical Stimulation Unattended Modalities Electrical Stimulation Unattended 36609 2015 RAÚL STEWART Mobilization Soft Ti ue Mobilization Soft Tissue 97685 2015 RAÚL STEWART Physical Therapy: ___ Se ion Segments, 15 Minutes Each Physical Therapy: ___ Session Segments, 15 Minutes Each 10551 2015 RAÚL STEWART Modalities Heat Hot Packs Modalities Heat Hot Packs 55716 2015 LIZZIE LOPEZ Modalities Electrical Stimulation Modalities Electrical Stimulation 84224 2015 LIZZIE LOPEZ Traction Cervical Traction Cervical 08958 08/07 LIZZIE LOPEZ Physical Therapy: ___ Se ion Segments, 15 Minutes Each Physical Therapy: ___ Session Segments, 15 Minutes Each 91936 2015 LIZZIE LOPEZ Physical Therapy: ___ Se ion Segments, 15 Minutes Each Physical Therapy: ___ Session Segments, 15 Minutes Each 86241 2015 LIZZIE LOPEZ Traction Cervical Traction Cervical 40703 08/05 LIZZIE LOPEZ Mobilization Soft Ti ue Mobilization Soft Tissue 36711 2015 LIZZIE LOPEZ Modalities Electrical Stimulation Unattended Modalities Electrical Stimulation Unattended 34002 2015 RAÚL STEWART Mobilization Soft Ti ue Mobilization Soft Tissue 94267 2015 RAÚL STEWART Physical Therapy: ___ Se ion Segments, 15 Minutes Each Physical Therapy: ___ Session Segments, 15 Minutes Each 20752 2015 RAÚL STEWART Physical Therapy: ___ Se ion Segments, 15 Minutes Each Physical Therapy: ___ Session Segments, 15 Minutes Each [id number] 2015 HILDA LINDSEY Physical Therapy Service Evaluation Physical Therapy Service Evaluation 27675 2015 HILDA LINDSEY Non-Physician Phone Call To Patient/Provider Brief (5-10min) Non-Physician Phone Call To Patient/Provider Brief (5-10min) [id number] 2015 LION PETERSON Postoperative Visit, Without Charge Postoperative Visit, Without Charge 91790 2015 RAJINDER RIBEIRO Laser in situ keratomileusis (LASIK) 2015 RAJINDER RIBEIRO Postoperative Visit, Without Charge Postoperative Visit, Without Charge 22469 2015 NOREEN MARROQUIN Postoperative Visit, Without Charge Postoperative Visit, Without Charge 56861 2015 JOSE CARLOS KLEIN Laser in situ keratomileusis (LASIK) 2015 JOSE CARLOS KLEIN Ophthalmological New Patient Start Intermediate Level Care Ophthalmological New Patient Start Intermediate Level Care 89751 2015 JOSE CARLOS KLEIN Scanning Computerized Ophthalmic Diagnostic Imaging Anterior Segment, Unilateral Scanning Computerized Ophthalmic Diagnostic Imaging Anterior Segment, Unilateral 24597 2015 JOSE CARLOS KLEIN Physician Supervised Group Educational Services Physician Supervised Group Educational Services 45947 2015 JOSE CARLOS KLEIN [facility] Corneal Pachymetry Corneal Pachymetry 51906 2015 Reymundo ROBYN [facility] Computerized Corneal Topography Computerized Corneal Topography 19024 2015 ROBYN MARROQUIN [facility] Determination Of Refractive State Determination Of Refractive State 27430 2015 ROBYN MARROQUIN [facility] Ophthalmological New Patient Start Comprehensive Care Ophthalmological New Patient Start Comprehensive Care 29245 2015 ROBYN MARROQUIN [facility] Non-Physician Phone Call To Patient/Provider Brief (5-10min) Non-Physician Phone Call To Patient/Provider Brief (5-10min) 33733 2015 BLANCO ARANA [facility] Non-Physician Phone Call To Pt/Provider Intermed (11-20 min) Non-Physician Phone Call To Pt/Provider Intermed (11-20 min) 13114 2015 BLAKE GANDARA [facility] Non-Physician Phone Call To Patient/Provider Brief (5-10min) Non-Physician Phone Call To Patient/Provider Brief (5-10min) 37154 2015 AKUA BENITEZ [facility] Corneal Pachymetry Both Eyes Corneal Pachymetry Both Eyes 16753 2015 JASPER BIANCHI [facility] Computerized Corneal Topography Computerized Corneal Topography 75843 2015 JASPER BIANCHI Ophthalmological Prior Patient Start Comprehensive Care Ophthalmological Prior Patient Start Comprehensive Care 45428 2015 JASPER BIANCHI Determination Of Refractive State Determination Of Refractive State 64128 2015 JASPER BIANCHI [facility] Psychiatric Examination Following Psychotherapy/Ment al Treat Psychiatric Examination Following Psychotherapy/Ment al Treat 92353 2015 NIKO BELLO [facility] Non-Physician Phone Call To Pt/Provider Lengthy (21-30 min) Non-Physician Phone Call To Pt/Provider Lengthy (21-30 min) 05218 2015 BLAKE GANDARA [facility] Physician Supervised Injection Intramuscular Physician Supervised Injection Intramuscular 55803 2015 LIZZIE BLAIR 60mg Toradol admin gluteal via 21g, pt tolerated well. Lot #[id number] Exp: [id number] [facility] Non-Physician Phone Call To Patient/Provider Brief (5-10min) Non-Physician Phone Call To Patient/Provider Brief (5-10min) 52126 2015 BLANCO ARANA DoD Psychotherapy Individual Approximately 60 Minutes 2014 ACENIKO Barba DoD Psychotherapy Individual Approximately 60 Minutes 2014 ACENIKO Barba DoD Psychotherapy Individual Approximately 60 Minutes 2014 NIKO BELLO DoD Psychiatric Diagnostic Evaluation Initial Psychiatric Diagnostic Evaluation Initial 17575 2014 ACENIKO Barba DoD Modalities Ultrasound Modalities Ultrasound 33684 2014 GRIFFIN ARELLANO DoD Physical Therapy Id age Physical Therapy Massage 62392 2014 GRIFFIN ARELLANO Ice massage DoD Non-Physician Phone Call To Patient/Provider Brief (5-10min) Non-Physician Phone Call To Patient/Provider Brief (5-10min) 60764 2014 BLANCO ARANA [facility] Physical Therapy Id age Physical Therapy Massage 70651 2014 LIZZIE LOPEZ Ice massage DoD Modalities Ultrasound Modalities Ultrasound 68389 2014 LIZZIE LOPEZ DoD Modalities Ultrasound Modalities Ultrasound 99801 2014 GRIFFIN ARELLANO [facility] Physical Therapy Id age Physical Therapy Massage 52318 2014 ADAN GRIFFIN GU[place]LE Ice massage DoD Modalities Ultrasound Modalities Ultrasound 06236 2014 GRIFFIN ARELLANO [place] DoD Physical Therapy Id age Physical Therapy Massage 22551 2014 GRIFFIN ARELLANO [place] Ice massage DoD Modalities Ultrasound Modalities Ultrasound 04040 2014 GRIFFIN ARELLANO DoD Physical Therapy Id age Physical Therapy Massage 35388 2014 GRIFFIN ARELLANO [place] Ice massage DoD Modalities Iontophoresis Modalities Iontophoresis 73205 2014 GRIFFIN ARELLANOUEL DoD Modalities Ultrasound Modalities Ultrasound 30654 2014 GRIFFIN ARELLANOUEL DoD Physical Therapy Id age Physical Therapy Massage 97887 2014 GRIFFIN ARELLANO DoD Modalities Iontophoresis Modalities Iontophoresis 88111 2014 GRIFFIN ARELLANO DoD Modalities Ultrasound Modalities Ultrasound 44618 2014 GRIFFIN ARELLANO DoD Physical Therapy Id age Physical Therapy Massage 04031 2014 GRIFFIN ARELLANO [facility] Physical Therapy: ___ Se ion Segments, 15 Minutes Each Physical Therapy: ___ Session Segments, 15 Minutes Each 76753 2014 AYDEN EMERSON Physical Therapy Service Evaluation Physical Therapy Service Evaluation 19028 2014 AYDEN EMERSON Spectacles Services Fitting Monofocal Except For Aphakia Spectacles Services Fitting Monofocal Except For Aphakia 95067 2013 RAJINDER RIBEIRO Determination Of Refractive State Determination Of Refractive State 00818 2013 RAJINDER RIBEIRO Ophthalmological Prior Patient Start Comprehensive Care Ophthalmological Prior Patient Start Comprehensive Care 33913 2013 RAJINDER RIBEIRO Non-Physician Phone Call To Pt/Provider Intermed (11-20 min) Non-Physician Phone Call To Pt/Provider Intermed (11-20 min) 04486 2013 REGINA LACKEY Non-Physician Phone Call To Patient/Provider Brief (5-10min) Non-Physician Phone Call To Patient/Provider Brief (5-10min) 43209 2013 BLANCO ARANA Physical Therapy Service Re-Evaluation Physical Therapy Service Re-Evaluation 47593 2013 RACHELE MCKENZIE Physical Therapy Neuromuscular Re-education Physical Therapy Neuromuscular Re-education 26986 2013 RACHELE MCKENZIE Physical Therapy: ___ Se ion Segments, 15 Minutes Each Physical Therapy: ___ Session Segments, 15 Minutes Each 12370 2013 RACHELE MCKENZIE Phys Therapy Education Self Care Training - Per 15 Minutes Phys Therapy Education Self Care Training - Per 15 Minutes 57435 2013 RACHELE MCKENZIE Physical Therapy: ___ Se ion Segments, 15 Minutes Each Physical Therapy: ___ Session Segments, 15 Minutes Each 93416 2013 RACHELE MCKENZIE Physical Therapy Service Evaluation Physical Therapy Service Evaluation 05143 2013 RACHELE MCKENZIE Removal Of Foreign Body From Conjunctiva Superficial Removal Of Foreign Body From Conjunctiva Superficial 60649 2012 JASPER BIANCHI Ophthalmological Prior Patient Start Intermediate Level Care Ophthalmological Prior Patient Start Intermediate Level Care 14786 2012 JASPER BIANCHI Non-Physician Phone Call To Patient/Provider Brief (5-10min) Non-Physician Phone Call To Patient/Provider Brief (5-10min) 93390 2012 BLANCO ARANA [facility] Spectacles Services Fitting Monofocal Except For Aphakia Spectacles Services Fitting Monofocal Except For Aphakia 79099 2012 JASPER BIANCHI [facility] Social History Combined list of available smoking, tobacco, and other social history from [facility] facilities. Social History Type Response Date Comment Sourc e Sex Representation Male 11/30/2020 Unknow n Organization Sexual Orientation Ambula tory Pharmacy Gender identity Ambulator y Pharmacy This section is an empty soc ial history section. [facility] Assessment and Plan Combined list of future care activities from [facility] of Defense and Veterans Affairs facilities (e.g., assessment and plan notes, appointments, orders, and referrals). Additional future care activities may be listed in the Plan of Care section. Result Assessment and Plan Date Source Assessment and Plan No data available for this section 12/07/2024 Ambulatory Pharmacy Functional Status Combined list of recent functional and cognitive assessments recorded at [facility] Functional [place] Measurement (FIM) Scale: 1 = Total Assistance (Subject = 0% +), 2 = Maximal Assistance (Subject = 25% +), 3 = Moderate Assistance (Subject = 50% +), 4 = Minimal Assistance (Subject = 75% +), 5 = Supervision, 6 = Modified [place] (Device), 7 = Complete [place] (Timely, Safely). Assessment Date/Time Source Assessment Type Assessment Skill Assessment Score Assessment Details No data available for this section
== END 2024-12-07 09:48 | disposition home or self-care (01) ==
LOC: HO.CT 09:47
PROVIDERS: PCP Internal Medicine; Visit Provider Physician Assistant
DX: R59.1 Generalized enlarged lymph nodes (principal)
CPT/HCPCS: 70491; Q9967

== ENCOUNTER → 2024-12-07 10:23 | Outpatient (BNV) | payer OTHER, SELFPAY | PROVIDERS: PCP Internal Medicine; Visit Provider Radiology Diagnostic Radiology | DX: R59.0 Localized enlarged lymph nodes (principal) | CPT/HCPCS: 70491 ==

== ENCOUNTER 2025-03-10 13:33 | Emergency (ER) | payer OTHER, SELFPAY ==
[2025-03-10 13:52] VITALS: BP 110/69; PULSE 92; RESP 18; TEMP 36.8; O2SAT 98; BMI 28.3
--- NOTE | 2025-03-10 13:52 | ED_ITS ---
HPI - Nausea/Vomiting/Diarrhea General Chief complaint: Nausea/Vomiting/Diarrhea Stated complaint: Vomiting Related Data Allergies Allergy/AdvReac Type Severity Reaction Status Date / Time cefadroxil [From Duricef] Allergy Hives Verified 03/10/25 13:54 doxycycline Allergy Vomiting Verified 03/10/25 13:54 shellfish derived Allergy Vomiting Verified 03/10/25 13:54 PMFSH Social History Social History Advance Directives: No Advance Directives Information Provided: No Physical Exam 2 Vital Signs: Vital Signs: Last Vital Signs Temp 98.3 F 03/10/25 13:52 Pulse 92 03/10/25 13:52 Resp 18 03/10/25 13:52 BP 110/69 03/10/25 13:52 Pulse Ox 98 03/10/25 13:52 O2 Del Method Room Air 03/10/25 13:52 BMI result Body Mass Index 28.3 Course Course Course Narrative: This is an RME: Additional HPI, ROS, PE not included below will be deferred to primary provider. RME assessment and note performed by: Mirtha Hicks PA-C This is a 46-say[age]-brp-male, with no known medical problems, who presents to the ER with complaints of nausea and vomiting. No diarrhea. Reports symptoms started at midnight. Reporting epigastric pain. Children has diarrhea. Reports that food he had last night tasted off . Plan: Labs, UA, Zofran ODT. Reevaluation(s) Reevaluation #1: Patient left without completing treatment. Medications Administered Discontinued Medications Generic Name Dose Route Start Last Admin Trade Name Caterina PRN Reason Stop Dose Admin Ondansetron HCl 4 mg 03/10/25 13:53 03/10/25 13:55 Ondansetron Odt 4 Mg Tab.Rapdis TRANSLINGU 03/10/25 13:54 4 mg ONCE ONE Administration Medical Decision Making Lab Data 03/10/25 14:38 03/10/25 14:38 Labs: Lab Results 03/10/25 03/10/25 Range/Units 14:38 19:14 WBC 6.2 (4.8-10.8) X10*3/uL RBC 5.18 (4.60-5.80) X10*6/uL Hgb 15.7 (14.0-18.0) g/dl Hct 43.3 (42.0-52.0) % MCV 83.6 (80.0-98.0) fL MCH 30.3 (27.0-33.0) pg MCHC 36.3 H (31.0-36.0) g/dl RDW 12.6 (11.0-16.0) % Plt Count 198 D (160-400) X10*3/uL MPV 9.3 L (9.4-12.4) fL Immature Gran % (Auto) 0.2 (0.0-0.4) % Neut % (Auto) 89.9 H (45-73) % Lymph % (Auto) 5.3 L (20-40) % Rooks % (Auto) 4.4 (2-11) % Eos % (Auto) 0.0 (0-4) % Baso % (Auto) 0.2 (0-2) % Lymph # (Auto) 0.3 L (1.2-4.9) X10*3/uL Rooks # (Auto) 0.3 (0.1-1.2) X10*3/uL Eos # (Auto) 0.0 (0.0-0.4) X10*3/uL Baso # (Auto) 0.0 (0.0-0.2) X10*3/uL Abs Immat Gran (auto) 0.01 (0.00-0.03) X10*3/uL Absolute Neuts (auto) 5.6 (2.0-8.3) x10*3/uL Absolute Nucleated RBC 0.000 (0.0-0.012) X10*3/uL Nucleated RBC % (auto) 0.0 (0.0-0.2) /100WBC Sodium 137 (135-145) mmol/L Potassium 3.7 (3.3-5.1) mmol/L Chloride 103 (96-108) mmol/L Carbon Dioxide 25 (22-29) mmol/L Anion Gap 13 (12-20) BUN 12 (9-16) mg/dL Creatinine 1.20 (0.5-1.4) mg/dL Estim Creat Clear Calc 98.5 Estimated GFR > 60 Random Glucose 105 (60-115) mg/dL Calcium 9.5 (8.4-10.2) mg/dL Magnesium 2.0 (1.6-2.6) mg/dL Total Bilirubin 1.0 (0.0-1.0) mg/dL Direct Bilirubin 0.3 (0.0-0.5) mg/dL AST 31 (5-37) U/L ALT 31 (0-40) U/L Alkaline Phosphatase 57 (39-117) U/L Total Protein 7.5 (6.5-8.0) g/dL Albumin 4.9 (3.5-5.0) g/dL Lipase 25 (8-78) U/L Urine Color Yellow Urine Appearance Clear Urine pH 6.0 (5.0-9.0) Ur Specific [place] 1.015 (1.005-1.025) Urine Protein Negative (Neg-Trace) mg/dL Urine Glucose (UA) Negative (Negative) mg/dL Urine Ketones Negative (Negative) mg/dL Urine Blood Negative (Negative) Urine Nitrite Negative (Negative) Ur Leukocyte Esterase Negative (Negative) Discharge Plan Discharge Clinical Impression: Nausea & vomiting Patient Disposition: Left W/O Completing Treatment Discharge Date/Time: 03/10/25 19:22
[2025-03-10] MEDS: Ondansetron ODT 4 MG TAB.RAPDIS TRANSLINGU (13:55)
[2025-03-10 14:43] LABS: MANUAL DIFF FLAG NO
[2025-03-10 14:44] LABS: Basophils Percent Auto 0.2 % (0-2); Hematocrit 43.3 % (42.0-52.0); Hemoglobin 15.7 g/dl (14.0-18.0); Imm Gran Abs Auto 0.01 X10*3/uL (0.00-0.03); Imm Gran Pct Auto 0.2 % (0.0-0.4); Lymphocytes Absolute Auto 0.3 X10*3/uL (1.2-4.9); Lymphocytes Percent Auto 5.3 % (20-40); Mean Corpuscular HGB Conc 36.3 g/dl (31.0-36.0); Mean Corpuscular Hemoglobin 30.3 pg (27.0-33.0); Mean Corpuscular Volume 83.6 fL (80.0-98.0); Mean Platelet Volume 9.3 fL (9.4-12.4); Monocytes Absolute Auto 0.3 X10*3/uL (0.1-1.2); Monocytes Percent Auto 4.4 % (2-11); Neutrophils Absolute Auto 5.6 x10*3/uL (2.0-8.3); Neutrophils Percent Auto 89.9 % (45-73); Platelet Count 198 X10*3/uL (160-400); Red Blood Count 5.18 X10*6/uL (4.60-5.80); Red Cell Distribution Width 12.6 % (11.0-16.0); White Blood Count 6.2 X10*3/uL (4.8-10.8)
[2025-03-10 15:17] LABS: Alanine Aminotransferase 31 U/L (0-40); Albumin Level 4.9 g/dL (3.5-5.0); Alkaline Phosphatase 57 U/L (39-117); Anion Gap 13 (12-20); Aspartate Amino Transferase 31 U/L (5-37); Bilirubin Direct 0.3 mg/dL (0.0-0.5); Blood Urea Nitrogen 12 mg/dL (9-16); Calcium 9.5 mg/dL (8.4-10.2); Carbon Dioxide 25 mmol/L (22-29); Chloride 103 mmol/L (96-108); Creatinine Clr Calc Pharmacy 98.5; Estimated Glomerular Filt Rate > 60; Glucose Random 105 mg/dL (60-115); Lipase 25 U/L (8-78); Potassium 3.7 mmol/L (3.3-5.1); Sodium 137 mmol/L (135-145); Total Protein 7.5 g/dL (6.5-8.0)
[2025-03-10 19:21] LABS: Appearance Urine Clear; Color Urine Yellow; Glucose Urine UA Negative (Negative); Leukocyte Esterase Urine Negative (Negative); Nitrite Urine Negative (Negative); Specific Gravity - Urine 1.015 (1.005-1.025); Urine Blood Negative (Negative); Urine Ketones Negative (Negative); Urine Protein Negative (Neg-Trace)
== END 2025-03-10 19:22 | disposition left against medical advice (07) ==
PROVIDERS: Physician Assistant Medical; Emergency Provider Emergency Medicine Emergency Medical Services; PCP Internal Medicine
DX: R11.2 Nausea with vomiting, unspecified (principal); R10.13 Epigastric pain; Z53.21 Procedure and treatment not carried out due to patient leaving prior to being seen by health care provider
CPT/HCPCS: 36415; 80048; 80076; 81003; 83690; 83735; 85025; 99281; 99282; 99283